=== PATIENT | male | born 1965 | race Caucasian/White ===

== ENCOUNTER 2020-04-08 12:05 | Outpatient (CLI) | payer OTHER, SELFPAY ==
--- NOTE | 2020-04-08 | XR_ITS ---
WS: [id number] THORACIC SPINE TECHNIQUE: AP and lateral views are performed. HISTORY: THORACIC RADICULOPATHY COMPARISON: None available. Very mild S-shaped curvature of the thoracic spine. Pedicles are all identified. No fractures. Diffus e osteopenia. Prior cholecystectomy. XR/XR thoracic spine 3V* [id number] IMPRESSION: Very mild S-shaped scoliosis thoracic spine. No fracture.
--- NOTE | 2020-04-08 | XR_ITS ---
WS: [id number] LUMBAR SPINE: 3 VIEWS TECHNIQUE: AP, lateral and L5-S1 spot. HISTORY: LUMBAR RADICULOPATHY COMPARISON: None available. Mild straightening of the posterior lumbar spine. 3 mm retrolisthesis of L3 and L4. Moderate disc spa ce narrowing at L3-4 and mild at L4-5 and L5-S1. No fractures. Pedicles are all identified. No osseous destruction. SI joints are symmetric bilaterally. No soft tissue abnormalities. Prior cholecystectomy. IVC filter projects to the RIGHT of the L1 and L2 vertebral bodies. XR/XR lumbar spine 2-3V* [id number] IMPRESSION: 1. L3 and L4 retrolisthesis by 3 mm. 2. Moderate degenerative disc disease at L3-4 and mild at L4-5 and L5-S1. 3. No fracture.
== END 2020-04-08 12:06 | disposition home or self-care (01) ==
LOC: RAD 12:12
PROVIDERS: PCP Family Medicine; Visit Provider Family Medicine
DX: M54.14 Radiculopathy, thoracic region (principal); M54.16 Radiculopathy, lumbar region; M51.37 Other intervertebral disc degeneration, lumbosacral region; M51.36 Other intervertebral disc degeneration, lumbar region; M41.84 Other forms of scoliosis, thoracic region
CPT/HCPCS: 72072; 72100

== ENCOUNTER → 2020-05-21 08:15 | Outpatient (BNVA) | payer OTHER, SELFPAY | PROVIDERS: PCP Family Medicine; Referring Provider Family Medicine; Visit Provider Orthopaedic Surgery | DX: M54.9 Dorsalgia, unspecified (principal); M19.09 Primary osteoarthritis, other specified site; M51.36 Other intervertebral disc degeneration, lumbar region; M43.16 Spondylolisthesis, lumbar region | CPT/HCPCS: 72110 ==

== ENCOUNTER 2020-08-23 10:43 | Emergency (ER) | payer OTHER, SELFPAY ==
[2020-08-23 11:42] VITALS: BP 156/89; PULSE 67; RESP 16; TEMP 36.5; O2SAT 95; BMI 29.1
[2020-08-23 11:46] VITALS: BP 127/91; PULSE 60; O2SAT 97
--- NOTE | 2020-08-23 11:50 | ECG_ITS ---
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: : 1965 Requested By: Anirudh Leung Order Number: [id number] Reading MD: TEA DE LEÓN Measurements Intervals [place] Rate: 63 P: 52 WI: 196 QRS: -14 QRSD: 111 T: 18 QT: 384 QTc: 395 Interpretive Statements SINUS RHYTHM MODERATE INTRAVENTRICULAR CONDUCTION DELAY [110+ ms QRS DURATION] INTERPRETATION BASED ON A DEFAULT AGE OF 40 YEARS No previous ECG available for comparison Electronically Signed On 08-24-2020 18:50:36 CDT by TEA DE LEÓN [id number] f
--- NOTE | 2020-08-23 11:50 | XRR_ITS ---
PROCEDURE INFORMATION: Exam: XR Chest Exam date and time: 08/23/2020 11:50 AM Age: 55 years old Clinical indication: Pain; Chest pressure; Additional info: Chest pain TECHNIQUE: Imaging protocol: XR of the chest. Views: 1 view. COMPARISON: CR XR thoracic spine 3V* [id number] 04/08/2020 12:28 PM FINDINGS: Lungs: Unremarkable. No consolidation. Pleural spaces: Unremarkable. No pleural effusion. No pneumothorax. Heart/Mediastinum: Unremarkable. No cardiomegaly. Bones/joints: Unremarkable. XR/XR chest 1V portable [id number] IMPRESSION: No acute findings.
[2020-08-23 12:01] VITALS: BP 127/91; PULSE 59; O2SAT 97
--- NOTE | 2020-08-23 12:11 | ED_ITS ---
HPI - Chest Pain General: Chief Complaint: Chest Pain Stated Complaint: SOB, dizzy, chest pain Time Seen by Provider: 08/23/20 11:49 Source: patient Mode of arrival: ambulatory Limitations: no limitations History of Present Illness: HPI narrative: YesterdayPatient states he has had shortness of breath with exertion for approximately 2 months. Says he has intermittent palpitations as well. He needs feelings of near syncope chest pressure and tightness since last night. He is scheduled for a Cardiac stress test on the last week of August. Patient states he does have an IVC filter. 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.) Onset (ago): day(s) (1) Timing of current episode: episodic Prior episodes: Yes Onset: during rest Pain location: substernal and left chest Pain radiation: none Severity: mild Quality: heaviness Relieving factors: nothing Exacerbating factors: nothing Associated symptoms: Reports dyspnea (Mild shortness of breath with exertion.), palpitations and other (Occasional dizziness with almost near syncope.); Deny abdominal pain, diaphoresis, fever(s), leg edema, nausea, sense of impending doom, syncope or vomiting Treatment prior to arrival: none Risk Factors: Pulmonary embolism risk factors: clotting disorder Review of Systems Const: Reports: fatigue; Denies: fever(s) or diaphoresis Eyes: Denies: change in vision ENMT: Denies: throat pain Card: Reports: chest pain, palpitations and dyspnea on exertion; Denies: edema, swelling of feet/ankles, syncope or leg pain with exertion Resp: Reports: dyspnea (Mild shortness of breath with exertion.) GI: Denies: abdominal pain, nausea or vomiting : Denies: flank pain Musc: Denies: neck pain or back pain Skin/Breast: Denies: rash or pruritus Neuro: Denies: headache(s) or numbness in extremities Psych: Denies: anxiety Gume/Lymph: Denies: enlarged lymph nodes PFSH ED PFSH: Social History Smoking and tobacco status: never smoked Alcohol intake: never Physical Exam Const: COMMON NORMALS: no acute distress, patient oriented x3, no limitations and well nourished GENERAL APPEARANCE: cooperative HENMT: COMMON NORMALS: normocephalic and atraumatic HEAD & SCALP: normocephalic and atraumatic FACE & SINUS: normal facial exam Eye: COMMON NORMALS: EOMs intact bilaterally Neck/C-Spine: COMMON NORMALS: full ROM, no lymphadenopathy, supple, no meningeal signs and no JVD GENERAL: Yes normal visual inspection Lymph: LYMPHATIC: no lymphadenopathy noted Chest: COMMONS NORMALS: normal inspection of the chest and normal palpation of entire chest wall CHEST: No Ecchymosis present and No rash Resp: COMMON NORMALS: normal respiratory effort, No retractions, No use of accessory muscles and clear to auscultation bilaterally EFFORT & INSPECTION: No respiratory distress AUSCULTATION: clear to auscultation bilaterally Cardio: COMMON NORMALS: no JVD, regular rate, regular rhythm and Peripheral pulses 2+ throughout JUGULAR VENOUS DISTENTION: no JVD RATE: regular rate RHYTHM: regular rhythm PERIPHERAL PULSES: Peripheral pulses 2+ throughout GI: COMMON NORMALS: Normal to inspection, nondistended, normoactive bowel sounds present and non-tender : COMMON NORMALS: Yes no CVA tenderness BLADDER/KIDNEY EXAM: Yes no CVA tenderness Back/Pelvis: COMMON NORMALS: no CVA tenderness Extremity: COMMON NORMALS: normal to inspection, full ROM and capillary refill normal Neuro: COMMON NORMALS: patient oriented x3, CN's II-XII intact bilaterally, no focal motor deficits and no sensory deficits noted MENINGEAL SIGNS: Yes no meningeal signs Psych: COMMON NORMALS: mental status grossly normal and Normal thought process present THOUGHT PROCESS: Normal thought process present Skin: COMMON NORMALS: no rashes or lesions noted, no wounds and turgor normal GENERAL SKIN EXAM: no rashes or lesions noted and turgor normal Course 2 Vital Signs: Vital signs: Vital Signs Temperature 97.7 F 08/23/20 11:42 Pulse Rate 59 L 08/23/20 12:01 Respiratory Rate 16 08/23/20 11:42 Blood Pressure 127/91 08/23/20 12:01 Pulse Oximetry 97 08/23/20 12:01 MDM - Chest Pain MDM Narrative: Medical decision making narrative: 1321: blood has yet to be drawn. 1444: I reviewed the lab results with the patient. Patient given the option for admission and patient declined admission for further cardiac work-up. Patient states he already has cardiac stress test scheduled for later this month. However, I have instructed the patient to call his quality improvement consultant on Monday to see if he can get in for a sooner test since he is symptomatic. Patient agreed to return if worse. He will continue his present medications. Lab Data: Attestation: I reviewed the patient's lab results. Labs: Lab Results 08/23/20 08/23/20 08/23/20 Range/Units 13:38 13:38 13:38 WBC 5.5 (4.0-10.0) 10^3/ uL RBC 4.65 (4.1-5.3) 10^6/u L Hgb 14.4 (11.7-16.6) g/dL Hct 43.4 (42.0-52.0) % MCV 93.3 (80-94) fL MCH 31.0 (28.0-34.0) pg MCHC 33.2 (30.0-36.0) g/dL RDW 13.6 (12.1-15.1) % Plt Count 214 (130-400) 10^3/c mm MPV 10.8 H (7.4-10.4) fL Neut % (Auto) 49.9 % Lymph % (Auto) 31.0 % Cottle % (Auto) 11.2 % Eos % (Auto) 6.4 % Baso % (Auto) 1.1 % Neut # (Auto) 2.72 (1.8-7.7) 10^3/u L Lymph # (Auto) 1.7 (0.8-4.8) 10^3/u L Cottle # (Auto) 0.6 (0.2-0.9) 10^3/u L Eos # (Auto) 0.4 (0.0-0.8) 10^3/u L Baso # (Auto) 0.1 (0.0-0.1) 10^3/u L Nucleated RBC % (a uto) 0 % Nucleated RBCs # 0.0 /100WBC PT 19.40 H (12.1-14.9) SECO NDS INR 1.59 H (0.8-1.2) Sodium 141 (136-145) mmol/L Potassium 3.9 (3.5-5.1) mmol/L Chloride 103 (98-107) mmol/L Carbon Dioxide 27 (22-29) mmol/L Anion Gap 14.9 (5-19) BUN 12 (6-20) mg/dL Creatinine 0.7 (0.7-1.2) mg/dL GFR Calculation 117.1 (90-130) mL/min Glucose 88 (65-115) mg/dL Calculated Osmolal ity 291 (285-295) mOsm/k g Calcium 8.7 (8.5-10.5) mg/dL Troponin T Baselin e (0-15) ng/L NT-Pro-B Natriuret Pep 9 (0-125) pg/mL 08/23/20 Range/Units 13:38 WBC (4.0-10.0) 10^3/ uL RBC (4.1-5.3) 10^6/u L Hgb (11.7-16.6) g/dL Hct (42.0-52.0) % MCV (80-94) fL MCH (28.0-34.0) pg MCHC (30.0-36.0) g/dL RDW (12.1-15.1) % Plt Count (130-400) 10^3/c mm MPV (7.4-10.4) fL Neut % (Auto) % Lymph % (Auto) % Cottle % (Auto) % Eos % (Auto) % Baso % (Auto) % Neut # (Auto) (1.8-7.7) 10^3/u L Lymph # (Auto) (0.8-4.8) 10^3/u L Cottle # (Auto) (0.2-0.9) 10^3/u L Eos # (Auto) (0.0-0.8) 10^3/u L Baso # (Auto) (0.0-0.1) 10^3/u L Nucleated RBC % (a uto) % Nucleated RBCs # /100WBC PT (12.1-14.9) SECO NDS INR (0.8-1.2) Sodium (136-145) mmol/L Potassium (3.5-5.1) mmol/L Chloride (98-107) mmol/L Carbon Dioxide (22-29) mmol/L Anion Gap (5-19) BUN (6-20) mg/dL Creatinine (0.7-1.2) mg/dL GFR Calculation (90-130) mL/min Glucose (65-115) mg/dL Calculated Osmolal ity (285-295) mOsm/k g Calcium (8.5-10.5) mg/dL Troponin T Baselin e 6 (0-15) ng/L NT-Pro-B Natriuret Pep (0-125) pg/mL Imaging Data^: CXR: Attestation: I personally reviewed and interpreted this imaging study as follows: My impression: Chest x-ray appears normal. Nothing acute. Radiologist's impression: Patient: Costa Dot #: [id number]: 1965Acct#:[id number]/Sex: 55 / MADM Date: 08/23/20Loc: ERRoom/Bed:Attending Dr: Ordering Provider/Ordering MD: Anirudh Rizzo MD Date of Service: 08/23/20 Procedure(s): XR chest 1V portable [id number] Accession Number(s): [id number] Report Number: [id number] PROCEDURE INFORMATION: Exam: XR Chest Exam date and time: 08/23/2020 11:50 AM Age: 55 years old Clinical indication: Pain; Chest pressure; Additional info: Chest pain TECHNIQUE: Imaging protocol: XR of the chest. Views: 1 view. COMPARISON: CR XR thoracic spine 3V* [id number] 04/08/2020 12:28 PM FINDINGS: Lungs: Unremarkable. No consolidation. Pleural spaces: Unremarkable. No pleural effusion. No pneumothorax. Heart/Mediastinum: Unremarkable. No cardiomegaly. Bones/joints: Unremarkable. XR/XR chest 1V portable [id number] IMPRESSION: No acute findings. Dictated By:Padmini Harding By:Padmini Harding Date/Time:08/23/20 1311 EKG Data^: EKG 1: Attestation: I personally reviewed and interpreted this EKG as follows: EKG interpretation date: 08/23/20 EKG interpretation time: 12:16 Prior EKG tracings: not available for review Interpretation: Normal sinus rhythm with heart rate of 63. Nonspecific IVCD. Normal P wave, normal LA interval, normal ST segment. Normal T waves. Normal axis. Impression normal sinus rhythm with nonspecific IVCD. Otherwise normal. Discharge Plan Discharge Patient Disposition: Home Clinical Impression: Chest pain Condition: Stable Prescriptions: No Action multivitamin Tablet 1 tab PO DAILY RF: 0 lysine 500 mg tablet 500 mg PO DAILY RF: 0 warfarin 2 mg tablet See Rx Instructions .ROUTE .COMPLEX RF: 0 sertraline 50 mg tablet 50 mg PO DAILY RF: 0 hydrocodone-acetaminophen 5-325 mg tablet 1 tab PO Q8H PRN (Reason: Pain) RF: 0 gabapentin 100 mg capsule 100 mg PO TID RF: 0 Beet Vitamin 1 tab PO DAILY RF: 0 Garlique 1 tab PO DAILY RF: 0 saw palmetto 1 tab PO DAILY RF: 0 Discharge Orders: Discharge ED (Routine); Ordered 08/23/20 Ordered By: Anirudh Rizzo Referrals: Andres Stoll MD [Primary Care Provider] - Discharge Diet: Advance as tolerated Discharge Activity: Increase activity as tolerated Patient Instructions: Chest Pain (ED), Opioid Safety Activity Restrictions/Additional Instructions: Call quality improvement consultant office on Monday to see if you can get an earlier appointment to have your cardiac stress test done earlier than later in the month. Return immediately if symptoms worsen. Continue home medications. 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
[2020-08-23 13:53] LABS: Basophils # 0.1 10^3/uL (0.0-0.1); Basophils % 1.1 %; Eosinophils # 0.4 10^3/uL (0.0-0.8); Eosinophils % 6.4 %; Hematocrit 43.4 % (42.0-52.0); Hemoglobin 14.4 g/dL (11.7-16.6); Lymphocytes # 1.7 10^3/uL (0.8-4.8); Mean Corpuscular HGB Conc 33.2 g/dL (30.0-36.0); Mean Corpuscular Volume 93.3 fL (80-94); Mean Platelet Volume 10.8 fL (7.4-10.4); Monocytes # 0.6 10^3/uL (0.2-0.9); Monocytes % 11.2 %; Neutrophils # 2.72 10^3/uL (1.8-7.7); Neutrophils % 49.9 %; Nucleated Red Blood Cells % 0 %; Platelet Count 214 10^3/cmm (130-400); Red Blood Count 4.65 10^6/uL (4.1-5.3); Red Cell Distribution Width 13.6 % (12.1-15.1); White Blood Count 5.5 10^3/uL (4.0-10.0)
[2020-08-23 14:00] LABS: INR 1.59 (0.8-1.2)
[2020-08-23] MEDS: aspirin 81 mg Chew Tablet 324 MG PO (14:09)
[2020-08-23 14:15] LABS: Anion Gap 14.9 (5-19); Blood Urea Nitrogen 12 mg/dL (6-20); Calcium 8.7 mg/dL (8.5-10.5); Carbon Dioxide 27 mmol/L (22-29); Chloride 103 mmol/L (98-107); Glomerular Filtration Rate 117.1 mL/min (90-130); Glucose 88 mg/dL (65-115); NT Pro B Type Natriuretic Pept 9 pg/mL (0-125); Osmolality Calculated 291 mOsm/kg (285-295); Potassium 3.9 mmol/L (3.5-5.1); Sodium 141 mmol/L (136-145)
[2020-08-23 14:31] LABS: Troponin(5th) Baseline 6 ng/L (0-15)
[2020-08-23 15:14] VITALS: BP 126/76; PULSE 63; RESP 18; O2SAT 98
== END 2020-08-23 15:15 | disposition home or self-care (01) ==
PROVIDERS: Emergency Provider Family Medicine; PCP Family Medicine
DX: R07.9 Chest pain, unspecified (principal); Z79.01 Long term (current) use of anticoagulants
CPT/HCPCS: 71045; 80048; 83880; 84484; 85025; 85610; 93005; 99283

== ENCOUNTER 2020-08-26 07:23 | Outpatient (CLI) | payer OTHER, SELFPAY ==
[2020-08-26 07:44] VITALS: BMI 29.1
--- NOTE | 2020-08-26 07:49 | ECG_ITS ---
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 The perfusion scan will be documented separately. DATA: Baseline heart rate was 55 beats per minute. Baseline blood pressure was 135/85 millimeters of mercury. Target heart rate was 165. Maximum heart rate achieved was 90. which was 54 % of the predicted target heart rate. Maximum blood pressure was 148/85 millimeters of mercury. The reason for ending the test was completion of the protocol. The patient did not experience any symptoms. ELECTROCARDIOGRAM: BASELINE: Sinus rhythm. Normal axis. Otherwise, no ST-T changes suggestive of ischemia noted. No arrhythmia noted. EXERCISE: After Lexiscan injection, no ST-T changes suggestive of ischemic noted. No arrhythmia noted. CONCLUSION: Please note due to baseline abnormality of the EKG specificity and sensitivity of the EKG portion of LexiScan MIBI stress test will be low 1. EKG not suggestive of ischemia 2. Lexiscan injection unremarkable. 3. Perfusion scan will be documented separately. Electronically Signed On 08-28-2020 14:54:56 CDT by TEA DE LEÓN [id number]
--- NOTE | 2020-08-26 07:50 | NMCV_ITS ---
NM hillary perf SPECT r/s* [id number] Mikhail Do Age: 55 Gender: M : 1965 Exam Date: 08/26/2020 08:29 Ordering Phys: Andres Stoll MD Technologist: JESUS Murphy Exam Location: [facility] Indications: CHEST PAIN STRESS TEST Please see separate stress test report in [facility] for full findings IMAGE PROTOCOL Rest/Stress 1 Lexiscan Day Radiopharmaceutical Dose (mCi) Administration Site Administered by Rest: Tc-99m 10.6 IV JESUS Ferreira Sestamibi Stress:Tc-99m 32.9 IV JESUS Ferreira Sestamibi Rest: 26-Aug-2020 60 Discovery 630 Stress: 26-Aug-2020 30 Discovery 630 0.4mg Lexiscan. Images obtained in supine and prone position. SPECT RESULTS Technical Quality: Excellent Raw Data Analysis: Normal Image Corrections: No attenuation or motion correction applied Summed Stress Score: 1 Summed Rest Score: 0 Summed Difference Score: 1 PERFUSION FINDINGS Medium-sized area of patchy decreased tracer uptake noted in mid to distal inferior inferolateral wall on the rest images which showed medium-sized area of moderate reversibility may represent ischemia however in the absence of wall motion abnormality cannot rule out artifact FUNCTIONAL RESULTS (calculated via Gated SPECT) Stress Image LV EF (%): 65 Stress EDV (mL):117 TID: 1.04 Stress ESV (mL):41 Rest Image LV EF (%): 65 FUNCTIONAL FINDINGS: There is normal left ventricular systolic function. IMPRESSIONS Medium-sized area of patchy reversibility suggestive of ischemia in the RCA territory was noted in the inferior wall of the left ventricle, in the absence of wall motion abnormality could it be artifact, clinical correlation advised. EKG segment will be documented separately. Gene Parker MD (Electronically Signed) Final Date: 26 August 2020 20:34 S
[2020-08-26] MEDS: regadenoson 0.4 Mg/5 ml Syringe IVP (09:10)
[2020-08-26 09:25] VITALS: BP 128/81; PULSE 62
== END 2020-08-26 07:24 | disposition home or self-care (01) ==
LOC: CDL 07:26
PROVIDERS: PCP Family Medicine; Visit Provider Family Medicine
DX: R07.9 Chest pain, unspecified (principal)
CPT/HCPCS: 78452; 93017; A9500; J2785

== ENCOUNTER → 2020-09-01 15:03 | Outpatient (BNVA) | payer OTHER, SELFPAY | PROVIDERS: PCP Family Medicine; Visit Provider Internal Medicine Cardiovascular Disease | DX: R06.02 Shortness of breath (principal); R94.39 Abnormal result of other cardiovascular function study; Z01.818 Encounter for other preprocedural examination | CPT/HCPCS: 80048; 85025; 85610; 87635 ==

== ENCOUNTER → 2020-09-03 13:32 | Outpatient (BNVA) | payer OTHER, SELFPAY | PROVIDERS: PCP Family Medicine; Referring Provider Family Medicine; Visit Provider Nurse Practitioner Family | DX: Z12.5 Encounter for screening for malignant neoplasm of prostate (principal); R39.198 Other difficulties with micturition; N40.0 Benign prostatic hyperplasia without lower urinary tract symptoms; N41.1 Chronic prostatitis | CPT/HCPCS: 81003; G0103 ==

== ENCOUNTER 2020-09-04 05:58 | Day surgery (SDC) | payer OTHER, SELFPAY ==
[2020-09-04] VITALS (17 sets, daily range): BP systolic 100–141; BP diastolic 68–101; PULSE 54–88; RESP 12–19; O2SAT 91–96; BMI 31.0
--- NOTE | 2020-09-04 06:00 | XACV_ITS ---
Ht: 183 cm Wt: 104 kg BSA: 2.32 m2 Gender: Male : 1965 Any Known Allergies: Other Exam Priority: Routine Procedure(s): Procedure Description: Diagnostic procedure Procedure Description: Left Heart Catheterization Procedure Description: Left ventriculography Procedure Description: Coronary Angiography Diagnostic Cath Status: Elective Diagnostic Findings * No disease noted in the Left Main, Left Anterior Descending, Right, or Circumflex coronary arteries. * Coronary angiography shows right dominance. Conclusions 1. No disease noted in the Left Main, Left Anterior Descending, Right, or Circumflex coronary arteries. 2. All oneal are normal. 3. Normal left ventricular systolic function. Ejection fraction of 65%. Recommendations * Continue current medical management and risk factor modification. Ventriculography Ejection Fraction: 65.0 % Left Ventriculography Findings: * Normal left ventricle ejection fraction no wall motion abnormality. Pressures Phase:Rest AO : 107 / 61 ( 77 ) @ 7:18:00 AM 110 / 62 ( 79 ) @ 7:18:00 AM LV : 127 / -14 / 9 @ 7:17:00 AM 179 / 47 / 84 @ 7:18:00 AM 127 / -12 / 12 @ 7:18:00 AM Valves Phase:DefaultPhase AV : 18.0 @ 8:25:27 AM 18.0 @ 8:25:27 AM AV Mean Gradient: 25.0 @ 8:25:27 AM 25.0 @ 8:25:27 AM Clinical Evaluation EBL: 5mL-10mL Procedural Details Procedure Consent Obtained. Pre-Procedure Time Out. Identified patient by full name and date of as verbalized by the patient/guarantor. Does the consent match the physician's order: Yes. Accurate & Complete Informed Consent: Yes. Inpatient/Outpatient History & Physical on Chart: Yes. If H&P is completed, is and addenduem needed: No; If yes, is the addendum complete: N/A. Visualize and Verify Site with Patient/Guarantor: N/A. Relevant Radiology Images available: N/A. Pre-op teaching completed and patient verbalized understanding. The risks, benefits, and alternatives of sedation and/or procedure were discussed by physician. The patient agrees to continue. Procedure started. [facility] Clinical Fraility Score: 2: Well. 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 Chest Pain Symptom Assessment: Typical Angina Symptoms. Cardiovascular Instability: No. Correct patient, site and procedure confirmed by cath team. PERRLA. Strong, equal hand water technician bilaterally. Lungs clear x 5 lobes. IV Site on Arrival: 20 gauge in the left anticubital. IV Fluids: 0.9% NaCl at KVO. 0 mL infused prior to liaison inspection laboratory assistant. Pre Procedural Pulses: bilateral dorsalis pedis was 3+. Pre Procedural Pulses: bilateral posterior tibial was 3+. Pre Procedural Pulses: bilateral radial was 3+. Oxygen started at 2liters/min via nasal canula. right groin was prepped with chloroprep then draped in the usual sterile fashion. right radial was prepped with chloroprep then draped in the usual sterile fashion. Baseline sample Acquired. HR: 57 BPM. Equipment: 6F - Radial. Cardiac Cath Pack. ACIST Manifold Kit Model BT 2000. Heparinized Saline (2 units/mL), 1000 mL bag. Physician arrived. Physician scrubbed in. Immediate Pre-Procedure Time Out. Correct Patient: Yes; Correct Procedure: Yes; Correct Site: Yes; Correct Patient Position: Yes; Correct Supplies: Yes; Dried Flammable Prep: Yes; Blood Products Available: N/A;. Lidocaine 1% infiltrated to the right radial. Arterial access obtained. A 5 macanese TIG catheter in over wire. Multiple views taken of right coronary artery. Catheter redirected to the LCA. Catheter removed over the exchange wire. A 5 macanese Angled Pig catheter in over wire. EDP Sample taken: LV 127/-15,9; HR: 67 BPM; SpO2: 94%. EDP Sample taken: LV 179/47,84; HR: 67 BPM; SpO2: 94%. Pullback taken: LV 127/-13,12; AO 107/61(77); Mean: 25mmHg, Peak to Peak: 18mmHg, SEP: 8sec/min; HR: 67 BPM; SpO2: 94%. Catheter removed over the exchange wire. Physician scrubbed out. A TR Band was successful obtaining hemostatsis at the Right Radial artery insertion site. TR band placed. Hemostasis obtained. Post Procedure: Pulses reassessed and unchanged. PERRLA. Strong, equal hand water technician bilaterally. No VTE prophylaxis required. Medication's Wasted: Lidocaine 1% = 18 mL. Medication's Wasted: Nitro = 49.8 mg. Medication's Wasted: Heparin = 1000 units. Total IV fluids: 50 mL. Contrast type used: Omnipaque 300 mgI/mL, 500 mL bottle. Post-op diagnosis: abnormal stress test. Complications: none. Estimated blood loss: 5mL-10mL. Procedure completed. Patient transferred by wheelchair to CPRU. Vital chart was stopped. Access Site Site: Right Radial artery Sheath Size: 6 Fr Hemostasis Method: TR Band Hemostasis Success: Successful Procedure Medications Start: 7:54 AM Stop: 7:54 AM Medication: Benadryl Amount: 50 mg Route: I.V. Start: 7:54 AM Stop: 7:54 AM Medication: Versed Amount: 1 mg Route: I.V. Start: 7:54 AM Stop: 7:54 AM Medication: Fentanyl Amount: 50 mcg Route: I.V. Start: 8:01 AM Stop: 8:01 AM Medication: Versed Amount: 1 mg Route: I.V. Start: 8:01 AM Stop: 8:01 AM Medication: Fentanyl Amount: 50 mcg Route: I.V. Start: 8:06 AM Stop: 8:06 AM Medication: Versed Amount: 1 mg Route: I.V. Start: 8:08 AM Stop: 8:08 AM Medication: Nitrogylcerin Amount: 200 mcg Route: I.A. Start: 8:10 AM Stop: 8:10 AM Medication: Heparin Amount: 5000 units Route: I.V. Start: 8:12 AM Stop: 8:12 AM Medication: Versed Amount: 1 mg Route: I.V. I, the attending physician, have reviewed and verified all procedure medications. Yes, all medications given per verbal order History/Risk Factors Hypertension: No Dyslipidemia: No Peripheral Arterial Disease (PAD): No Myocardial Infarction (DE): No Obesity: No Renal Disease: No Tobacco Use: Former Prior Interventions PCI: No CABG: No Valve Surgery: No Report Signatures Finalized by Gene Parker MD on 09/18/2020 10:52 AM
[2020-09-04 07:32] LABS: INR 1.27 (0.8-1.2)
[2020-09-04] MEDS: clopidogrel 300 mg Tablet 600 MG PO (07:45)
--- NOTE | 2020-09-04 07:48 | W.PM.OPSUD ---
Surgery/Procedure H&P Update DATE OF PROCEDURE: September 04, 2020 DATE H&P PERFORMED: 09/01/20 H&P UPDATE INFORMATION: I have reviewed H&P completed within last 30 days, I have examined patient prior to procedure, No changes to prior documentation and Changes to prior documentation as noted here PREOP DIAGNOSIS: Abnormal stress test, chest pain PLANNED PROCEDURE: Operation Date: 09/04/20 07:00 Proposed Procedures p Cardiac Catheterization left(Left) - Gene Parker MD PATIENT REASSESSED PRIOR TO SEDATION, WITH NO CHANGE NOTED: Yes PHYSICAL EXAM: alert, oriented x 3, clear to auscultation bilaterally and regular rate & rhythm AIRWAY EVAL/ANESTHESIA PLAN: ASA II, Risks, benefits & alternatives of sedation and/or procedure discussed and Patient agrees to continue as planned
--- NOTE | 2020-09-04 08:47 | SUR.PHASEII ---
RECOVERY NOTE Patient brought to CPRU for recovery/discharge. Vital signs and Site assessments per flowsheet. Call light placed within reach. Verbal post cath instructions given to patient and spouse. Verbalized understanding. No hematoma noted to right wrist at this time.
--- NOTE | 2020-09-04 08:59 | SUR.PHASEII ---
IV FLUIDS 0.9% NS AT 100 ML/HR POST CATH. INFUSING ORDERED.
--- NOTE | 2020-09-04 09:30 | SUR.PHASEII ---
TR BAND DEFLATION TR BAND DEFLATION BEGAN. NO HEMATOMA NOTED. PATIENT GIVEN POST CATH INSTRUCTIONS. VERBALIZED UNDERSTANDING.
--- NOTE | 2020-09-04 11:19 | SUR.PHASEII ---
BAND DEFLATION Band deflated. Verbal post cath instructions went over. Pt understood.
--- NOTE | 2020-09-04 12:55 | SUR.PHASEII ---
Lovenox scripts Lovenox injections discussed with patient. MD to have patient take tonight, Monday BID, Monday BID and Monday morning as previous prescribed Prior to procedure for warfarin dosing to take effect. Patient verbalized understanding. Scripts called to local [facility] pharmacy for patient to take. Noted. Patient understood dosing.
== END 2020-09-04 13:10 | disposition home or self-care (01) ==
PROVIDERS: PCP Family Medicine; Visit Provider Internal Medicine Cardiovascular Disease
DX: R94.39 Abnormal result of other cardiovascular function study (principal); R07.9 Chest pain, unspecified; Z86.718 Personal history of other venous thrombosis and embolism
CPT/HCPCS: 36415; 85610; 93452; C1769; C1887; C1894; J1200; J1644; J2250; J3010; J3430; J3490; J7030; Q9967

== ENCOUNTER → 2021-05-19 08:12 | Outpatient (BNVA) | payer OTHER, SELFPAY | PROVIDERS: PCP Family Medicine; Referring Provider Family Medicine; Visit Provider Orthopaedic Surgery | DX: M25.562 Pain in left knee (principal) | CPT/HCPCS: 73560; 73565 ==

== ENCOUNTER → 2021-09-15 08:14 | Outpatient (BNVA) | payer OTHER, SELFPAY | PROVIDERS: PCP Family Medicine; Visit Provider Family Medicine | DX: Z79.01 Long term (current) use of anticoagulants (principal); N41.1 Chronic prostatitis; M48.062 Spinal stenosis, lumbar region with neurogenic claudication | CPT/HCPCS: 80053; 80061; 83036; 84153; 84550; 85025; 85610 ==

== ENCOUNTER → 2021-11-11 09:38 | Outpatient (BNVA) | payer OTHER, SELFPAY | PROVIDERS: PCP Family Medicine; Visit Provider Physician Assistant | DX: M48.062 Spinal stenosis, lumbar region with neurogenic claudication (principal); M51.37 Other intervertebral disc degeneration, lumbosacral region; M47.816 Spondylosis without myelopathy or radiculopathy, lumbar region | CPT/HCPCS: 72110 ==

== ENCOUNTER 2021-12-09 06:44 | Outpatient (CLI) | payer OTHER, SELFPAY ==
--- NOTE | 2021-12-09 07:15 | MR_ITS ---
WS: [id number] MRI LUMBAR SPINE NONCONTRAST HISTORY: low back pain COMPARISON: 04/16/2020 TECHNIQUE: Sagittal and axial multisequence imaging is submitted. Increase in the cervical lordosis and thoracic kyphosis. Cervical and thoracic mild disc bulges. Most significant disc bulge at C3-4 with contact on the ventral cervical cord. No high-grade stenosis. Mild straightening of the normal lumbar lordosis. No fractures. Moderate disc space narrowing and desiccation at L3-4, L4-5 and L5-S1. Conus terminates normally at L1-2 disc level. L1-L2: Normal. L2-L3: Mild ligamentum flavum and facet disease. No stenosis. Small central fissure. No stenosis. L3-L4: Very mild osteophytic ridging with ligamentum flavum and facet disease. There is a small LEFT foraminal disc protrusion. L4-L5: Diffuse annular disc bulging and osteophytic ridging. Ligamentum flavum and facet arthritis. S mall amount of fluid in the LEFT facet joint. Very minimal narrowing of the subarticular recesses and foramina. L5-S1: Mild disc bulging. Facet and ligamentum flavum hypertrophy. Paravertebral soft tissues are negative. MR/MR lumbar spine wo con* [id number] IMPRESSION: 1. No high-grade central or foraminal stenosis. 2. Small LEFT foraminal disc protrusion proximal foramen of L3-4. 3. Multilevel mild facet disease. 4. Mild bilateral subarticular recess and foraminal narrowing at L4-5.
== END 2021-12-09 06:45 | disposition home or self-care (01) ==
LOC: RAD 06:44
PROVIDERS: PCP Family Medicine; Visit Provider Physician Assistant
DX: M47.816 Spondylosis without myelopathy or radiculopathy, lumbar region (principal); M51.26 Other intervertebral disc displacement, lumbar region; M48.061 Spinal stenosis, lumbar region without neurogenic claudication
CPT/HCPCS: 72148

== ENCOUNTER → 2022-07-26 07:54 | Outpatient (BNVA) | payer MEDICARE, OTHER, SELFPAY | PROVIDERS: PCP Family Medicine; Visit Provider Physician Assistant | DX: M47.816 Spondylosis without myelopathy or radiculopathy, lumbar region (principal); M51.37 Other intervertebral disc degeneration, lumbosacral region; M48.062 Spinal stenosis, lumbar region with neurogenic claudication | CPT/HCPCS: 72110; 99203 ==

== ENCOUNTER → 2022-08-09 10:57 | Outpatient (BNVA) | payer MEDICARE, OTHER, SELFPAY | PROVIDERS: PCP Family Medicine; Visit Provider Orthopaedic Surgery | DX: M17.11 Unilateral primary osteoarthritis, right knee (principal); E11.9 Type 2 diabetes mellitus without complications | CPT/HCPCS: 36415; 73560; 73565; 80053; 83036; 85025; 99213 ==

== ENCOUNTER 2022-08-16 14:56 | Outpatient (CLI) | payer MEDICARE, OTHER, SELFPAY | END 2022-08-16 14:57 | disposition home or self-care (01) | LOC: RAD 15:02 | PROVIDERS: PCP Family Medicine; Visit Provider Orthopaedic Surgery | DX: M48.062 Spinal stenosis, lumbar region with neurogenic claudication (principal); M51.37 Other intervertebral disc degeneration, lumbosacral region; M54.16 Radiculopathy, lumbar region; M47.816 Spondylosis without myelopathy or radiculopathy, lumbar region; Z87.828 Personal history of other (healed) physical injury and trauma | CPT/HCPCS: 99204 ==

== ENCOUNTER → 2022-09-15 08:11 | Outpatient (BNVA) | payer MEDICARE, OTHER, SELFPAY | PROVIDERS: PCP Family Medicine; Visit Provider Student in an Organized Health Care Education/Training Program | DX: M17.11 Unilateral primary osteoarthritis, right knee (principal) | CPT/HCPCS: 99204 ==

== ENCOUNTER → 2022-09-20 14:13 | Outpatient (BNVA) | payer MEDICARE, OTHER, SELFPAY | PROVIDERS: PCP Family Medicine; Visit Provider Anesthesiology Pain Medicine | DX: M54.16 Radiculopathy, lumbar region (principal); M48.062 Spinal stenosis, lumbar region with neurogenic claudication; M47.816 Spondylosis without myelopathy or radiculopathy, lumbar region; M51.37 Other intervertebral disc degeneration, lumbosacral region | CPT/HCPCS: 64483; 64484; J1100; J3490 ==

== ENCOUNTER → 2022-09-23 08:32 | Outpatient (BNVA) | payer MEDICARE, OTHER, SELFPAY | PROVIDERS: PCP Family Medicine; Visit Provider Family Medicine | DX: Z51.81 Encounter for therapeutic drug level monitoring (principal); E11.9 Type 2 diabetes mellitus without complications; Z13.220 Encounter for screening for lipoid disorders; Z12.5 Encounter for screening for malignant neoplasm of prostate; R35.0 Frequency of micturition; R03.0 Elevated blood-pressure reading, without diagnosis of hypertension | CPT/HCPCS: 80053; 80061; 83036; 83721; 84153; 84550; 85025 ==

== ENCOUNTER 2022-09-26 06:14 | Outpatient (CLI) | payer MEDICARE, OTHER, SELFPAY ==
--- NOTE | 2022-09-26 06:30 | USCV_ITS ---
Mikhail Do Age: 57 Gender: M : 1965 Exam Date: 09/26/2022 06:37 Ordering Phys: Andres Stoll MD Technologist: CT Exam Location: [facility] – [place] Indication: le swelling PROCEDURES: Venous duplex imaging was performed in only the left lower extremity. In addition, the posterior tibial and peroneal trunk were evaluated. On the left side, the common femoral, superficial femoral, profunda femoral, popliteal, posterior tibial, greater saphenous veins, and the peroneal trunk were identified and interrogated in the standard fashion. These veins were found to be easily compressible with spontaneous blood flow. No evidence of insufficiency or thrombus noted. FINDINGS: no dvt CONCLUSIONS No evidence of left lower extremity DVT. Boris Millan MD (Electronically Signed) Final Date: 26 September 2022 09:01 Amended: 26 September 2022 09:03 C
== END 2022-09-26 06:15 | disposition home or self-care (01) ==
PROVIDERS: PCP Family Medicine; Visit Provider Family Medicine
DX: M79.662 Pain in left lower leg (principal)
CPT/HCPCS: 93971

== ENCOUNTER → 2022-12-21 12:22 | Outpatient (BNVA) | payer MEDICARE, OTHER, SELFPAY | PROVIDERS: PCP Family Medicine; Visit Provider Family Medicine | DX: R30.0 Dysuria (principal) | CPT/HCPCS: 81000 ==

== ENCOUNTER → 2022-12-27 15:21 | Outpatient (BNVA) | payer MEDICARE, OTHER, SELFPAY | PROVIDERS: PCP Family Medicine; Visit Provider Student in an Organized Health Care Education/Training Program | DX: M25.561 Pain in right knee (principal); Z01.818 Encounter for other preprocedural examination | CPT/HCPCS: 99214 ==

== ENCOUNTER → 2023-01-05 15:07 | Outpatient (BNVA) | payer MEDICARE, OTHER, SELFPAY | PROVIDERS: PCP Family Medicine; Visit Provider Family Medicine | DX: Z01.818 Encounter for other preprocedural examination (principal); M25.50 Pain in unspecified joint | CPT/HCPCS: 80053; 81003; 85025; 86618; 86666; 86757 ==

== ENCOUNTER 2023-01-06 12:43 | Outpatient (CLI) | payer MEDICARE, OTHER, SELFPAY ==
--- NOTE | 2023-01-06 13:00 | CT_ITS ---
WS: [id number] CT RIGHT KNEE, NONCONTRAST TECHNIQUE: Noncontrast CT of the RIGHT knee to include the RIGHT hip and ankle. CLINICAL INFORMATION: M17.11 - Unilateral primary osteoarthritis, right knee COMPARISON: None. DLP: [id number] scans at [facility] use at least one of these dose optimization techniques: automated e xposure control; mA and/or kV adjustment per patient size (includes targeted exams where dose is matc hed to clinical indication); or iterative reconstruction. FINDINGS: Advanced degenerative arthritis medial joint compartment RIGHT knee with subchondral cystic change an d slightly hypertrophic patella. Small suprapatellar effusion. Vascular calcification. Moderate degen erative arthritis sacroiliac joints. Enlarged prostate measuring 5.3 cm with evidence of bladder outl et obstruction. Recommend correlation PSA. IMPRESSION: Images obtained for preoperative purposes.
== END 2023-01-06 12:44 | disposition home or self-care (01) ==
LOC: RAD 12:44
PROVIDERS: PCP Family Medicine; Visit Provider Student in an Organized Health Care Education/Training Program
DX: M17.11 Unilateral primary osteoarthritis, right knee (principal)
CPT/HCPCS: 73700

== ENCOUNTER 2023-01-18 15:40 | Observation (INO) | payer MEDICARE, OTHER, SELFPAY ==
[2023-01-18] VITALS (16 sets, daily range): BP systolic 92–149; BP diastolic 63–86; PULSE 55–77; RESP 12–20; TEMP 36.3–37.6; O2SAT 91–97; BMI 32.3
[2023-01-18] MEDS: acetaminophen 1,000 MG/100 ML PIGGYBACK 400 MG IV ×3 (06:20→22:16)
[2023-01-18] MEDS: ketorolac 30 mg/mL INJ IVP (06:21)
[2023-01-18] MEDS: scopolamine 1.5 Patch 1 PATCH TRANSDERMA (06:29)
[2023-01-18] MEDS: lactated ringers 500 ML IV (06:29)
[2023-01-18] MEDS: sodium chloride 0.9% 1,000 ML 30 ML IV (06:56)
--- NOTE | 2023-01-18 07:04 | W.PM.OPSUD ---
Surgery/Procedure H&P Update DATE OF PROCEDURE: January 18, 2023 DATE H&P PERFORMED: 12/27/22 H&P UPDATE INFORMATION: I have reviewed H&P completed within last 30 days, I have examined patient prior to procedure and No changes to prior documentation CHANGES TO PREVIOUS DOCUMENTATION: None PREOP DIAGNOSIS: Right knee degenerative joint disease PRIMARY INDICATION FOR PROCEDURE: Right knee degenerative joint disease PLANNED PROCEDURE: Operation Date: 01/18/23 07:30 Proposed Procedures p Right Yanick Robot Total Knee Arthroplasty(Right) - Armando Boo DO
[2023-01-18 07:16] LABS: Basophils # 0.1 10^3/uL (0.0-0.1); Basophils % 1.1 %; Eosinophils # 0.2 10^3/uL (0.0-0.8); Eosinophils % 3.7 %; Hematocrit 46.2 % (37-53); Lymphocytes # 2.1 10^3/uL (0.8-4.8); Lymphocytes % 36.3 %; Mean Corpuscular HGB Conc 33.3 g/dL (30-55); Mean Corpuscular Hemoglobin 31.5 pg (27-33); Mean Corpuscular Volume 94.5 fl (82-101); Mean Platelet Volume 11.1 fL (7.4-10.4); Monocytes # 0.6 10^3/uL (0.2-0.9); Monocytes % 10.5 %; Neutrophils # 2.73 10^3/uL (1.8-7.7); Neutrophils % 47.9 %; Nucleated Red Blood Cells % 0 %; Platelet Count 253 10^3/cmm (157-399); Red Blood Count 4.89 10^6/uL (3.85-5.65)
--- NOTE | 2023-01-18 07:29 | ANES.PREANE2 ---
Pre-Anesthetic Assessment Height/Weight: Height 1.78 m Weight 102.058 kg Temp Pulse Resp BP Pulse Ox O2 Del Method 97.4 F L 67 20 H 149/86 97 Room Air 01/18/23 06:03 01/18/23 06:03 01/18/23 06:03 01/18/23 06:03 01/18/23 06:03 01/18/23 06:03 Preop Diagnosis: Right knee degenerative joint disease Operation Date: 01/18/23 07:30 Proposed Procedures p Right Yanick Robot Total Knee Arthroplasty(Right) - Armando Boo, Familial anesthetic complications: none Was Beta Lisa taken within 24 hours: N/A Was Clonidine taken within 24 hours: N/A Last intake: Intake Last Liquid Date 01/17/23 Last Liquid Time 18:00 Last Solid Date 01/17/23 Last Solid Time 18:00 Social No alcohol and No tobacco Exam alert, oriented x 3, clear to auscultation bilaterally and regular rate & rhythm Airway Mallampati: Class II Dentition: full CV/HEM favtor V leiden w/ Hx DVT and IVC filter, plan is to start patient on propylactic lovenox. will need to check when this is going to start so spinal is not performed without proper holding period to start anticoagulation Anesthetic Plan ASA status: 2 Anesthesia: Choice Other: spinal if prophylactic lovenox is to be held at least 12 hrs after (24 if therapeutic), otherwise general ETT, with nerve block Risk of > 500 ml blood loss (7ml/kg in children): No Medications/Allergies Home Medications Medication Instructions Recorded Confirmed Last Taken Type multivitamin 1 tab PO DAILY 05/21/20 01/18/23 01/17/23 History aspirin 81 mg tablet,delayed 81 mg PO DAILY 01/25/22 01/18/23 01/12/23 History release allopurinol 300 mg tablet 300 mg PO DAILY #90 tabs 09/22/22 01/18/23 01/17/23 Rx enoxaparin 30 mg/0.3 mL 30 mg (0.3 mL) SUBCUT Q12H 14 days 01/05/23 01/18/23 Unknown Rx subcutaneous syringe (Lovenox) #8.4 mL sertraline 100 mg tablet 50 mg PO DAILY 01/05/23 01/18/23 01/17/23 History cyclobenzaprine 10 mg tablet 10 mg PO TID PRN Muscle Spasm 01/18/23 01/18/23 Unknown History Allergies Allergy/AdvReac Type Severity Reaction Status Date / Time haloperidol [From Haldol] Allergy oral Verified 01/18/23 05:59 swelling Nhqllck-IWG-WxG Reductase Allergy short of Verified 01/18/23 05:59 Inhibitor breath [Zttcuno-Xqx-Wgb Reductase Inhibitor] Current Medications Generic Name Dose Route Start Last Admin Trade Name Freq PRN Reason Stop Dose Admin Sodium Chloride 1,000 mls @ 30 mls/hr 01/18/23 06:00 01/18/23 06:56 Sodium Chloride 0.9% IV 01/19/23 05:59 30 mls/hr .Q24H AVA Administration PFSH Anesthesia Medical History BPH loc w/o ur obs/LUTS Chronic prostatitis Diabetes mellitus Difficulty urinating DVT (deep venous thrombosis) Factor V deficiency Hx pulmonary embolism Positive cardiac stress test Surgical History History of surgery on arm S/P appendectomy S/P cholecystectomy S/P colon resection S/P IVC filter S/P knee surgery Family History Father , 67 y/o CHF (congestive heart failure) Myocardial infarct Brother Bleeding disorder Factor V (his 2 daughters have this as well) Mother Stroke Grandmother Abdominal aortic aneurysm (AAA) Social History Smoking and tobacco/nicotine status: never used tobacco/nicotine Alcohol intake: current Alcohol intake frequency: few times a month Substance/Drug Use: never Marital status: Current occupational status: employed Data Anesthesia 01/18/23 06:13 01/18/23 06:13 Short CBC 01/18/23 Range/Units 06:13 WBC 5.70 (3.29-11.43) 10^3/uL Hgb 15.40 (11.27-16.99) g/dL Hct 46.2 (37-53) % MCV 94.5 (82-101) fl Plt Count 253 (157-399) 10^3/cmm Neut % (Auto) 47.9 % Neut # (Auto) 2.73 (1.8-7.7) 10^3/uL Cardiac Studies: Sestamibi Stress Test (Cardiology) 08/26/20
[2023-01-18 07:38] LABS: Anion Gap 17.5 (5-19); Blood Urea Nitrogen 14 mg/dL (6-20); Calcium 9.4 mg/dL (8.5-10.5); Carbon Dioxide 25 mmol/L (22-29); Chloride 103 mmol/L (98-107); Creatinine Clr Calc Pharmacy 121.9397; Glomerular Filtration Rate 99.6 mL/min (90-130); Glucose 121 mg/dL (65-115); Osmolality Calculated 294 mOsm/kg (285-295); Potassium 4.5 mmol/L (3.5-5.1); Sodium 141 mmol/L (136-145)
--- NOTE | 2023-01-18 08:17 | ANES.PROC ---
Anesthesia Procedures Procedure/Date: 01/18/23 Nerve Block ^: Nerve Block 1: Main Anesthesia: spinal anesthesia block Time Out Performed: Yes Consent: requested by attending/covering physician, from patient, from other, risks and benefits reviewed and patient agrees to proceed Nerve block location: adductor canal (R) Anesthesia monitors applied: pulse oximetry, EKG, BP cuff and oxygen Nerve block position: supine Anesthetic Used: ropivicaine 0.5% (30 ml) and with decadron (4 mg) Ultrasound used to: recognize landmarks and visualize and ID femerol nerve Nerve Stimulator Used?: No Interscalene/Femoral BLK: 4 stimuplex 21 g needle used for position and inplane approach, visualize local anesthetic spread and no vascular puncture identified Injection: neg aspiration of heme Patient Tolerated Procedure: well Complications: none
[2023-01-18] MEDS: ceFAZolin 2,000 MG in sodium chloride 0.9% (plus) 50 ML 100 MG IV ×2 (08:22→17:37)
[2023-01-18 08:26] LABS: INR 0.98 (0.8-1.2)
[2023-01-18] MEDS: ROPivacaine 0.2% Premix 100 mL 200 MG INTRA-ARTI (09:21)
[2023-01-18] MEDS: EPINEPHrine 1 mg/mL INJ XX (09:21)
[2023-01-18] MEDS: ketorolac 30 mg/mL INJ XX (09:22)
--- NOTE | 2023-01-18 09:23 | PC.NURSE ---
Due to patient's factor V deficiency, no TXA was administered per Dr. Boo's order.
--- NOTE | 2023-01-18 10:15 | PC.NURSE ---
Updated patient's on patient's status.
--- NOTE | 2023-01-18 10:46 | P.OP_ITS ---
Operative Report Date of procedure: January 18, 2023 Surgeon: Armando Boo DO Geothermal Electrical Engineer: Andres Boo PA-C: PA was necessary for assistance in this case with retraction leg positioning as well as assistance with instrumentation and implantation of final implants as well as assistance with retraction and protection of neurovascular structures assistance and wound closure and dressing application. Procedure: Preoperative diagnosis: Right knee degenerative joint disease Post-op diagnosis: Same Procedure done: Right total knee arthroplasty, cemented?robotic assisted Yanick Implants: Amelia triathlon size 5 femur CR cemented?right Amelia triathlon size? 5 tibia universal baseplate cemented Conklin triathlon symmetric patella size 33 mm Conklin triathlon polyethylene 11mm Surgeon: Armando Boo DO Estimated blood loss: 50 mL Tourniquet 60minutes IV fluids: 800 mL Urine output: 50mL Complications: None Condition: stable Disposition: floor Brief History: Patient is a 57-year-old male with with chronic?right knee degenerative joint disease.? Patient has been worked up in the outpatient setting in the orthopedic office at this point time through shared decision making given his egut-bp-uahl arthritis as well as failed conservative treatment, and pt would like to proceed with a?right total knee arthroplasty.? Through shared decision making elected to proceed with surgical intervention for?right total knee arthroplasty.? We talked about continued conservative treatment and surgical intervention as far as the?risk benefits complications alternatives surgical and nonsurgical treatment options.? At this point time understanding patient?risks with surgery he agrees to proceed with surgical intervention.? Once again??risk with surgery include but are not limited to make it better make it worse blood clot, heart attack, stroke, on the table, infection, injury to nerves or vessels, persistent pain, arthrofibrosis, implant failure.? Understanding these?risks patient agrees to proceed with surgical intervention consent was obtained in the office.? All questions answered. Procedure: Patient was seen and evaluated in the preoperative holding area.? Consent was?reviewed and signed with patient with plan for?right total knee arthroplasty.? All questions answered.? Correct extremity marked.? Patient seen and evaluated by the anesthesia department and once cleared for surgery was taken back to the operative suite.? Patient was placed into a supine position on the OR table.? All bony prominences were well-padded.? Patient was appropriately secured to the bed.? Patient underwent anesthesia per the anesthesia department.? Patient?received spinal anesthesia and? Sharif catheter was placed.? A nonsterile tourniquet was applied to the?right thigh.? At this point in time a final timeout performed.? Patient?received appropriate preoperative antibiotics. Next the?right lower extremity was then prepped and draped in standard orthopedic fashion. Esmarch tourniquet was used exsanguinate the?right lower extremity.? Tourniquet was insufflated to 250 mmHg. A standard anterior incision was made over midline of the knee.? Sharp scalpel excision through skin and subcutaneous tissue full-thickness skin flaps were made.? Fascia was elevated off of the extensor?retinaculum was stable with medial parapatellar arthrotomy was then made.? The performed standard sequential?releases. Immediately on entry into the joint patient was found to have severe eburnated bone and tricompartmental arthritic changes noted.? With significant osteophyte formation.? Next the the patella was then stuffed and the knee was then flexed.?? Mima was placed superiorly around the anterior aspect of the femur this was freed of synovium and I subsequently then placed by 2 femur pins to establish my femur arrays for the [employer]?robot.? These were then placed bicortically and? femur array was then appropriately secured with appropriate visualization.? Next attention was turned towards the tibial?rays.? These were then drilled sequentially bicortically in parallel fashion and intraincisional.? I then placed my guide as well as my tibial array on in place.? This was appropriately secured and had excellent visualization with the Yanick?robot.? Next the tibial checkpoint as well as femur checkpoint were then placed.? At this point time I then subsequently established my head center as well as my medial lateral malleoli as well as my checkpoints.? Next utilizing standard Yanick technology I then mapped out the appropriate points and confirmation points around the femur as well as the tibia in standard fashion.? Once this was then done I then?removed all osteophytes in preparation for dynamic testing.? All osteophytes were?removed as well as I?removed the ACL and the PCL was excised due to its significant tearing and degeneration noted.? At this point time the knee was brought into full extension and we performed our standard evaluation of our gap balancing stressing his ligaments and extension as well as flexion appropriate adjustments were made to have appropriate gap balancing in both flexion and extension.? This plan for final counts.? We get a preoperative plan evaluating our implants which was a size 5 femur and a size 5 tibia.? Next we brought in the [employer]?robot and sequentially made our femur cuts.? All excess bony cuts were then?removed.? Finally we made our tibial cut.? Once this was done a standard PCL?retractor was then placed into this position I excised the medial and lateral meniscus.? The tibial cut was then subsequently?removed all excess bony debris was?removed.? I then utilized a lamina permit coordinator and?remove the posterior osteophytes.? At this point time sized the tibia and confirmed this was a size 5.? I utilized our blunt probe to establish?rotation of tibial implant.? Once this was done I then placed my tibia size 5 trial in appropriate position and then subsequently placed tibial pins to hold this into place placed a size 11 mm poly as well as a size 5 femur which was appropriately impacted in place knee was then subsequently brought into extension. Trials were then assessed, this was stable with varus valgus stress in extension as well as had symmetrical translation when brought into flexion demonstrating symmetrical gaps. I had excellent balance gaps in flexion and extension with varus and valgus stresses.? At this point I was satisfied with these implants these were then verified and opened on the back table size 5 tibia, size 5 femur,? size 11 mm polythickness.? We did confirm appropriate gap balancing and stresses as well as alignment utilizing? Yanick and were satisfied with this plan.? ?At this point time with my trials in place I then towel clip the patella everted this made appropriate measurements subsequently utilizing freehand technique performed by patellar?resurfacing this was confirmed to be appropriate?resection and subsequently sized to be a 33 mm symmetric.? My drill peg guides were then clamped and appropriate position and appropriate position in the patella for appropriate tracking and parallel with the joint.? Pegs were drilled trial implant was placed and the knee was then subsequently?ranged and found to have excellent patellar tracking.? Femur pegs were then drilled.? Satisfied with our tibial placement?rotation I then utilized the keel punch and prepped the tibia.? At this point time all of our trial implants were?removed.? All checkpoints as well as guidepins and arrays were?removed and appropriate counts made.? The wound bed? was thoroughly irrigated and dried and prepped for cementation.? Cement was mixed on the back table.? Once cement was?ready this was then covered onto the tibia and the tibial baseplate was then impacted and all excess cement was?removed.? Next the polyethylene was then impacted into place on the tibial baseplate.? Next cement was placed onto the femur as well as under the femur implants and impacted in to place and all excess cement was extruded and?removed.? Knee was taken into full extension? to clear all excess cement was?removed.? Warm saline was placed over the joint.? I then towel clip patella and dried for cementation. cemented the patella into place.? This was all clamped and the cement was allowed to cure.? Thorough irrigation performed with pulse lavage.? I then placed my periarticular injection while the cement was curing.? Once cured the knee was taken through?range of motion and had excellent stability and gaps were balanced in flexion and extension.? Tourniquet was then deflated. hemostasis satisfactory with electrocautery.? Next I then subsequently closed the capsule with Ethibond suture as well as a?running strata fix suture.? Knee was then taken through?range of motion 30 times.? Next the skin was then closed in layered fashion of?running stratifix sutures of deep and subcutenous tissue and skin.? ?closed in flexion and dermabond glue was then placed over the incision this allowed to cure.? Incision was covered with Silverlon, with ABDs soft?roll and Lisandro wrap.? Patient was then awakened from anesthesia and taken to PACU in stable condition. Disposition: Patient taken to PACU in stable condition will be admitted to the floor for pain control PT/OT weight-bear as tolerated?right lower extremity dressing changes as needed, DVT prophylaxis. Pain control. Patient will?receive appropriate postoperative antibiotics. patient will be seen today by the internal medicine team for medical management.? Patient will follow up with the office in 2 weeks.? Patient understands agrees with current plan.? All questions answered.
--- NOTE | 2023-01-18 10:54 | W.PM.BPON ---
Date of Procedure: [January 18, 2023] Surgeon: [Dr. Ema VENTURA] Touch Up Worker(s): [Andres Boo physician associate] Procedure(s) performed: [Right total knee arthroplasty with Yanick robotic assist] Findings of the procedure(s): [Right knee degenerative joint disease] Estimated blood loss: [50 ml] Specimen(s) removed: [n/a] Post-operative diagnosis: [Right knee degenerative joint disease]
--- NOTE | 2023-01-18 10:56 | PM.PACU ---
PACU note Narrative: Patient is a 57-year-old male that just underwent a right knee total arthroplasty Yanick robotic assist. pt transferred to PACU in stable condition. Dressing is dry. pt is awake and alert. Distal pulses are palpable toes are warm and well-perfused. Cap refill is normal and under 2 seconds. unable to perform any further exam assessment on motor and sensation due to spinal. Exam: awake Disposition: admitted
--- NOTE | 2023-01-18 11:00 | XRR_ITS ---
PROCEDURE INFORMATION: Exam: XR Right Knee Exam date and time: 01/18/2023 12:05 PM Age: 57 years old Clinical indication: Device placement; Joint replacement hardware; Prior surgery; Surgery date: Post-operative (0-2 days); Surgery type: R tka; Additional info: S/P R tka, ap and lateral TECHNIQUE: Imaging protocol: Radiologic exam of the right knee. Views: 1 or 2 views. COMPARISON: CT knee RT [facility] [id number] 01/06/2023 1:05 PM FINDINGS: Bones/joints: Satisfactory immediate postoperative appearance of right total knee arthroplasty. Soft tissues: Postoperative gas. XR/XR knee RT 1-2V [id number] IMPRESSION: Satisfactory postoperative appearance.
--- NOTE | 2023-01-18 14:13 | ANE.PACU2 ---
Inpatient post-anesthesia follow up: Airway intact: Yes Vital signs: Temperature 97.5 F Pulse Rate 60 Respiratory Rate 18 Blood Pressure 115/81 Pulse Oximetry 94 Oxygen Delivery Me thod Room Air Oxygen Flow Rate Fraction of Inspir ed Oxygen Hydration adequate: Yes Nausea and vomiting: No Pain level: 1 Mental status: Baseline
[2023-01-18] MEDS: oxyCODONE 5 mg IR Tab/Cap PO ×2 (15:11→20:05)
--- NOTE | 2023-01-18 16:28 | USR_ITS ---
PROCEDURE INFORMATION: Exam: US Duplex Lower Extremity Veins, Bilateral Exam date and time: 01/18/2023 4:54 PM Age: 57 years old Clinical indication: Condition or disease; Other: Prone to dvt; Prior surgery; Surgery date: Post-operative (0-2 days); Surgery type: Right knee replacement TECHNIQUE: Imaging protocol: Real-time duplex ultrasound of the bilateral extremities with 2-D ramirez scale, color Doppler flow and spectral waveform analysis including responses to compression and other maneuvers (when performed) with image documentation. Complete exam focused on the lower extremity veins. COMPARISON: CT knee RT [facility] [id number] 01/06/2023 1:05 PM FINDINGS: Right deep veins: Unremarkable. The common femoral, femoral, proximal profunda femoral and popliteal veins are patent without thrombus. Normal Doppler waveforms. Normal compressibility and/or augmentation response. Left deep veins: Unremarkable. The common femoral, femoral, proximal profunda femoral and popliteal veins are patent without thrombus. Normal Doppler waveforms. Normal compressibility and/or augmentation response. Superficial veins: Bilateral saphenofemoral junctions are patent without thrombus. Soft tissues: Unremarkable. US/[place] [id number] IMPRESSION: No evidence of deep vein thrombosis.
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
[2023-01-18] MEDS: mupirocin oint 22 gm 1 APPLIC NASAL (17:36)
[2023-01-18] MEDS: iron polysaccharide complex 150 mg Capsule PO (17:36)
[2023-01-18] MEDS: calcium carb-vit d 600mg/400unit 1 Tablet 1 EACH PO (17:36)
[2023-01-18] MEDS: docusate sodium 100 mg Capsule PO (17:36)
[2023-01-18] MEDS: lactated ringers 1,000 ML 100 ML IV (17:37)
[2023-01-18] MEDS: chlorhexidine gluconate 0.12% Btl 473 mL 30 ML MUCOUS MEM ×2 (17:38→21:28)
[2023-01-18] MEDS: TRAMadol 50 mg Tablet PO (17:47)
[2023-01-18] MEDS: zolpidem 5 mg Tablet PO (21:28)
[2023-01-18] MEDS: ketorolac 30 mg/mL INJ 15 MG IVP (21:28)
[2023-01-18] MEDS: HYDROmorphone 1 mg/mL INJ 1 mL 0.5 MG IVP (22:16)
[2023-01-19] VITALS (14 sets, daily range): BP systolic 116–154; BP diastolic 68–85; PULSE 56–85; RESP 15–20; TEMP 36.4–37.8; O2SAT 92–96
[2023-01-19] MEDS: ceFAZolin 2,000 MG in sodium chloride 0.9% (plus) 50 ML 100 MG IV ×2 (01:01→08:47)
[2023-01-19] MEDS: oxyCODONE 5 mg IR Tab/Cap PO ×4 (01:04→18:01)
--- NOTE | 2023-01-19 01:12 | PC.NURSE ---
Oxy IR order change: Pt pain not controlled despite being given Oxy IR 5, Dilaudid and Toradol. Pt also says that the Tramadol did not work earlier so did not try that option again. Received on order to increase the Oxy IR to 5-10mg based on pain level. Pharmacy took over an hour to verify medication and the pt was in pain so this nurse overrode the Oxy IR 10mg in pyxis with RADHA Monroe as witness.
--- NOTE | 2023-01-19 01:52 | PC.NURSE ---
This nursed witnessed HAKAN Lott over ride Oxycodone IR due to pharmacy delay in verifying the order.
[2023-01-19] MEDS: lactated ringers 1,000 ML 100 ML IV (05:25)
[2023-01-19 05:42] LABS: Basophils % 0.3 %; Eosinophils # 0.1 10^3/uL (0.0-0.8); Eosinophils % 0.5 %; Hematocrit 38.5 % (37-53); Lymphocytes # 2.1 10^3/uL (0.8-4.8); Lymphocytes % 19.5 %; Mean Corpuscular HGB Conc 32.7 g/dL (30-55); Mean Corpuscular Hemoglobin 31.6 pg (27-33); Mean Corpuscular Volume 96.5 fl (82-101); Mean Platelet Volume 10.7 fL (7.4-10.4); Monocytes % 9.3 %; Neutrophils # 7.67 10^3/uL (1.8-7.7); Neutrophils % 70.1 %; Nucleated Red Blood Cells % 0 %; Platelet Count 214 10^3/cmm (157-399); Red Blood Count 3.99 10^6/uL (3.85-5.65); White Blood Count 10.94 10^3/uL (3.29-11.43)
[2023-01-19 06:12] LABS: Anion Gap 14.3 (5-19); Blood Urea Nitrogen 14 mg/dL (6-20); Calcium 9.8 mg/dL (8.5-10.5); Carbon Dioxide 24 mmol/L (22-29); Chloride 104 mmol/L (98-107); Glomerular Filtration Rate 116.2 mL/min (90-130); Glucose 118 mg/dL (65-115); Osmolality Calculated 288 mOsm/kg (285-295); Potassium 4.3 mmol/L (3.5-5.1); Sodium 138 mmol/L (136-145)
[2023-01-19] MEDS: apixaban 5 mg Tablet PO ×2 (06:39→18:01)
[2023-01-19] MEDS: acetaminophen 1,000 MG/100 ML PIGGYBACK 400 MG IV (06:39)
[2023-01-19] MEDS: ketorolac 30 mg/mL INJ 15 MG IVP ×3 (06:56→21:30)
[2023-01-19] MEDS: docusate sodium 100 mg Capsule PO ×2 (08:46→18:01)
[2023-01-19] MEDS: multivitamin therapeutic Tablet 1 TAB PO (08:46)
[2023-01-19] MEDS: calcium carb-vit d 600mg/400unit 1 Tablet 1 EACH PO ×2 (08:46→18:01)
[2023-01-19] MEDS: iron polysaccharide complex 150 mg Capsule PO ×2 (08:46→18:04)
[2023-01-19] MEDS: mupirocin oint 22 gm 1 APPLIC NASAL (08:49)
[2023-01-19] MEDS: chlorhexidine gluconate 0.12% Btl 473 mL 30 ML MUCOUS MEM ×2 (08:49→20:19)
[2023-01-19] MEDS: TRAMadol 50 mg Tablet PO (08:53)
[2023-01-19] MEDS: HYDROcodone-acetaminophen 5-325 mg Tablet 1 TAB PO ×2 (09:50→12:20)
--- NOTE | 2023-01-19 10:41 | PC.CHAP ---
Pastoral Care Encounter/Spiritual Assessment Type of Contact [] Declined business development executive visit [] Patient/Family/Request visit [] Outpatient visit [] Follow-up visit [] Physician referral [] Code/Alert [x] Routine visit [] Staff referral [] Actively dying [] Patient sleeping [] Family support [] [] Out of room [] Palliative care [] [x] Receiving care in room [] Pre-surgical visit [] Trauma [] Long length of stay [] ICU visit [] Other: Relational/Emotional Strength [x] Patient feels connected with others/family/visitors/staff [] Distress [] Loneliness/isolation [] Abandonment Spirituality of Patient [x] Person of Carolynn [] Attends Restorationism of their [place] [x] Believes in Prayer [] Reads Bible or Faith materials [] There are Spiritual issues to be addressed Firepot Operator And Tender Interventions [x] Prayer [x] Active listening [x] Non-anxious presence [x] Spiritual/emotional support [] Crisis/trauma care [x] Spiritual counseling [] Bereavement support [] Provided bereavement packet [] Provided Bible/devotional materials [] Provided toy/stuffed animal, coloring book to patient or family member [] Provided Communion [] Anointing/[place] [] Salvation [x] Completed spiritual assessment [] Other: Impact on Illness or Injury [] Angry [] Fearful [] Anxious [] Often cries [] Exhaustion [] Unable to work [] Unable to attend jewish [] Unable to walk/stand [] Unable to read [] Unable to drive [] Unable to eat/drink [] Unable to sleep [] Unable to be with family [] Patient intubated [] Other: Summary ankel replacement posative results well need some rehab and check ups +1 well be going home Time spent with patient 10 mins
[2023-01-19] MEDS: HYDROmorphone 1 mg/mL INJ 1 mL 0.5 MG IVP ×2 (11:42→20:52)
--- NOTE | 2023-01-19 12:35 | P.PN_ITS ---
Subjective 2 Subjective: Patient was seen this morning, denies any fevers, chills, no cough Vitals/I&O/Wt Last Vital Signs Temp 98.6 F 01/19/23 11:57 Pulse 62 01/19/23 11:57 Resp 18 01/19/23 11:57 BP 143/81 01/19/23 11:57 Pulse Ox 96 01/19/23 11:57 O2 Del Method Room Air 01/19/23 04:23 01/18/23 01/19/23 01/19/23 22:59 06:59 14:59 Intake Total 490 / 1340 1150 / 2490 650 / 650 Output Total 700 / 1000 Balance 490 / 1040 450 / 1490 650 / 650 Weight last 48 hrs Weight 113.88 kg Weight 102.058 kg Weight 102.058 kg Physical Exam 2 Const: COMMON NORMALS: no acute distress and patient oriented x3 Resp: COMMON NORMALS: normal respiratory effort, No retractions, No use of accessory muscles and clear to auscultation bilaterally AUSCULTATION: clear to auscultation bilaterally Cardio: COMMON NORMALS: regular rate, regular rhythm, S1 normal heart sound present and S2 normal heart sound present RATE: regular rate RHYTHM: r egular rhythm HEART SOUNDS: S1 normal heart sound present and S2 normal heart sound present GI: COMMON NORMALS: Normal to inspection, nondistended, normoactive bowel sounds present and non-tender Extremity: COMMON NORMALS: no pedal edema Neuro: COMMON NORMALS: patient oriented x3 Psych: COMMON NORMALS: mental status grossly normal Urinary Catheter Management: Sharif: Cath Placed During This Visit: yes Reason for Continuing Indwelling Catheter: Perioperative Use in Selected Surgeries Urinary Catheter Date of Insertion: 01/18/23 Urinary Catheter Time of Insertion: 08:45 Data 01/19/23 05:30 01/19/23 05:30 A&P Assessment and plan (1) Factor V deficiency: (2) DVT (deep venous thrombosis): (3) S/P IVC filter: (4) Right knee DJD: Plan Status post right knee surgery, ? Start Eliquis 5 mg p.o. twice daily for hypercoagulable events starting tomorrow, ? Would recommend at least 30 days of anticoagulant therapy -Discussed risk and benefits of anticoagulation, shared decision making, after he voiced understanding, all questions answered, agreed to proceed, ? Discussed with him that Eliquis compared to Lovenox or Coumadin has not been well studied in individuals with factor V Leiden, to decrease risk of hypercoagulable events, but it is easier to administer, ? Patient tells me that a few years ago he was offered Eliquis but could not afford it at that time ? Discussed risks and benefits of Eliquis, to decrease the risk of hypercoagulable events after surgery in a patient with factor V Leiden, he voiced understanding, all questions answered, shared decision making, agrees to proceed Attestations 2 Medical Necessity Statement*: Patient will be discharged today Diagnoses Factor V deficiency D68.2 DVT (deep venous thrombosis) I82.409 S/P IVC filter Z95.828 Right knee DJD M17.11
--- NOTE | 2023-01-19 13:24 | P.PN_ITS ---
Documented by User: BIPIN Peterson 01/19/23 16:12 Subjective 2 Subjective: Pt is 1 day post op right TKA. No acute events over night. Pt has gotten up and ambulated with PT today. Denies any fevers, n/v. Pt is having quite a bit of pain and having trouble getting it controlled with pain meds. Vitals/I&O/Wt Last Vital Signs Temp 98.6 F 01/19/23 11:57 Pulse 62 01/19/23 11:57 Resp 18 01/19/23 11:57 BP 143/81 01/19/23 11:57 Pulse Ox 96 01/19/23 11:57 O2 Del Method Room Air 01/19/23 04:23 01/18/23 01/19/23 01/19/23 22:59 06:59 14:59 Intake Total 490 / 1340 1150 / 2490 650 / 650 Output Total 700 / 1000 Balance 490 / 1040 450 / 1490 650 / 650 Weight last 48 hrs Weight 251 lb 1 oz Weight 225 lb Weight 225 lb Physical Exam 2 Const: COMMON NORMALS: no acute distress and alert Resp: COMMON NORMALS: normal respiratory effort and No retractions Cardio: COMMON NORMALS: Peripheral pulses 2+ throughout PERIPHERAL PULSES: Peripheral pulses 2+ throughout Extremity: NARRATIVE EXTREMITY EXAM: Right knee--bandage/dressing is intact, dry and in place. pt is able to dorsiflex and plantar flex and perform straight leg raise. pedal pulse 2 +. Neuro: SENSORIUM/ORIENTATION: Yes alert Skin: GENERAL SKIN EXAM: dry skin Urinary Catheter Management: Sharif: Cath Placed During This Visit: yes Reason for Continuing Indwelling Catheter: Perioperative Use in Selected Surgeries Urinary Catheter Date of Insertion: 01/18/23 Urinary Catheter Time of Insertion: 08:45 Data 01/19/23 17:55 01/19/23 17:55 A&P Assessment and plan (1) Status post total right knee replacement using cement: Plan Plan: -Imaging and Labs reviewed -Hospitalist on board for medical management. -DVT prophylaxis- per hospitalist -Weight-bear as tolerated on right leg -Pain control -PT Pt is doing well 1 day postop Right total knee replacement. Pt is cleared for discharge home today. Attestations 2 Medical Necessity Statement*: ongoing care for Right TKA Coding Level of Care Code Acute Code for Chg Fwd Diagnoses Status post total right knee replacement using cement Z96.651 Documented by User: Armando Boo DO 01/20/23 00:36 Physical Exam 2 Extremity: NARRATIVE EXTREMITY EXAM: Right knee--bandage/dressing is intact, dry and in place. pt is able to dorsiflex and plantar flex and perform straight leg raise. pedal pulse 2 +. Compartments are soft and compressible. Calf soft and nontender. Urinary Catheter Management: Sharif: Cath Placed During This Visit: yes Data 01/19/23 17:55 01/19/23 17:55 A&P Assessment and plan (1) Status post total right knee replacement using cement: Plan Plan: -Imaging and Labs reviewed -Hospitalist on board for medical management. -DVT prophylaxis- per hospitalist -Weight-bear as tolerated on right leg -Pain control -PT Pt is doing well 1 day postop Right total knee replacement. Pt is cleared for discharge home today. Orthopedic attending: Attestation: Agree with PAs assessment and plan. Patient was set up for discharge today however prior to discharge she had a small low-grade fever. Internal medicine was consulted there doing a workup and would recommend another additional night stay given patient does have high risk factors. Will continue to follow along and plan for likely discharge home tomorrow if workup Is negative. encourage incentive spirometry at this time. Orthopedics will round on patient tomorrow. Coding Level of Care Code Acute Code for Chg Fwd Diagnoses Status post total right knee replacement using cement Z96.651
[2023-01-19] MEDS: HYDROcodone-acetaminophen 10-325 mg Tablet 1 TAB PO ×3 (14:58→23:31)
--- NOTE | 2023-01-19 16:24 | P.DS_ITS ---
Discharge Providers Date of Admission: 01/18/23 15:40 Date of Discharge: January 19, 2023 Attending Provider at Admission: Armando Boo DO Attending Provider at Discharge: Armando Boo DO Primary Care Provider: Andres Stoll MD Diagnoses at Discharge Discharge Diagnosis (1) Status post total right knee replacement using cement: Status: Acute Reason for Visit Reason for Visit: K80.20 Physical Exam Urinary Catheter Management: Sharif: Cath Placed During This Visit: yes Reason for Continuing Indwelling Catheter: Perioperative Use in Selected Surgeries Urinary Catheter Date of Insertion: 01/18/23 Urinary Catheter Time of Insertion: 08:45 Discharge Data Studies Completed and Pending Completed Studies During Hospitalization Category Date Time Status XR knee RT 1-2V [id number] Routine Exams 01/18/23 11:00 Completed US venous duplex lower extremity bilat [CV venous Ultrasound 01/18/23 16:28 [place] [id number]] Routine Pending at discharge Category Date Time Status Basic Metabolic Panel AM LABS Lab 01/20/23 04:00 Ordered Basic Metabolic Panel AM LABS Lab 01/21/23 04:00 Ordered Complete Blood Count w/Auto AM LABS Lab 01/20/23 04:00 Ordered Complete Blood Count w/Auto AM LABS Lab 01/21/23 04:00 Ordered Radiology Impressions Knee X-Ray 01/18/23 11:00 IMPRESSION: Satisfactory postoperative appearance. Venous Duplex 01/18/23 16:28 IMPRESSION: No evidence of deep vein thrombosis. Laboratory Results WBC 10.94 10^3/uL (3.29-11.43) 01/19/23 05:30 RBC 3.99 10^6/uL (3.85-5.65) 01/19/23 05:30 Hgb 12.60 g/dL (11.27-16.99) 01/19/23 05:30 Hct 38.5 % (37-53) 01/19/23 05:30 MCV 96.5 fl (82-101) 01/19/23 05:30 MCH 31.6 pg (27-33) 01/19/23 05:30 MCHC 32.7 g/dL (30-55) 01/19/23 05:30 RDW 13.0 % (12.1-15.1) 01/19/23 05:30 Plt Count 214 10^3/cmm (157-399) 01/19/23 05:30 MPV 10.7 fL (7.4-10.4) H 01/19/23 05:30 Neut % (Auto) 70.1 % 01/19/23 05:30 Lymph % (Auto) 19.5 % 01/19/23 05:30 Emmet % (Auto) 9.3 % 01/19/23 05:30 Eos % (Auto) 0.5 % 01/19/23 05:30 Baso % (Auto) 0.3 % 01/19/23 05:30 Neut # (Auto) 7.67 10^3/uL (1.8-7.7) 01/19/23 05:30 Lymph # (Auto) 2.1 10^3/uL (0.8-4.8) 01/19/23 05:30 Emmet # (Auto) 1.0 10^3/uL (0.2-0.9) H 01/19/23 05:30 Eos # (Auto) 0.1 10^3/uL (0.0-0.8) 01/19/23 05:30 Baso # (Auto) 0.0 10^3/uL (0.0-0.1) 01/19/23 05:30 Nucleated RBC % (auto) 0 % 01/19/23 05:30 Nucleated RBCs # 0.0 /100WBC 01/19/23 05:30 PT 13.30 SECONDS (12.1-14.9) 01/18/23 07:39 INR 0.98 (0.8-1.2) 01/18/23 07:39 Sodium 138 mmol/L (136-145) 01/19/23 05:30 Potassium 4.3 mmol/L (3.5-5.1) 01/19/23 05:30 Chloride 104 mmol/L (98-107) 01/19/23 05:30 Carbon Dioxide 24 mmol/L (22-29) 01/19/23 05:30 Anion Gap 14.3 (5-19) 01/19/23 05:30 BUN 14 mg/dL (6-20) 01/19/23 05:30 Creatinine 0.7 mg/dL (0.7-1.2) 01/19/23 05:30 GFR Calculation 116.2 mL/min (90-130) 01/19/23 05:30 Glucose 118 mg/dL (65-115) H 01/19/23 05:30 Calculated Osmolality 288 mOsm/kg (285-295) 01/19/23 05:30 Calcium 9.8 mg/dL (8.5-10.5) 01/19/23 05:30 Blood Type O Positive 01/18/23 06:13 Rho(D) Type Rh positive 01/18/23 06:13 Antibody Screen Negative 01/18/23 06:13 Vitals Last Vital Signs Temp 98.6 F 01/19/23 11:57 Pulse 62 01/19/23 11:57 Resp 16 01/19/23 13:56 BP 143/81 01/19/23 11:57 Pulse Ox 96 01/19/23 11:57 O2 Del Method Room Air 01/19/23 04:23 Discharge Plan Discharge Patient Disposition: Home Condition: Stable Prescriptions: New Eliquis 5 mg Tablet 5 mg PO Q12H 30 Days Qty: 60 0RF ondansetron 4 mg tablet,disintegrating 4 mg PO Q8H PRN (Reason: nausea and vomiting) 3 Days Qty: 9 0RF oxycodone 10 mg tablet 10 mg PO Q6H PRN (Reason: pain) 7 Days Qty: 28 0RF methocarbamol 500 mg tablet 500 mg PO Q8H 7 Days Qty: 21 0RF Continued multivitamin Tablet 1 tab PO DAILY allopurinol 300 mg tablet 300 mg PO DAILY Qty: 90 2RF sertraline 100 mg tablet 50 mg PO DAILY Discontinued aspirin 81 mg tablet,delayed release (DR/EC) 81 mg PO DAILY enoxaparin [Lovenox] 30 mg/0.3 mL syringe 30 mg SUBCUT Q12H 14 Days Qty: 8.4 0RF cyclobenzaprine 10 mg tablet 10 mg PO TID PRN (Reason: Muscle Spasm) Discharge Orders: Discharge Order (Routine); Ordered 01/19/23 Ordered By: Leandro Cobian Other Ambulatory Orders: Physical Therapy Eval and Treat Outpatient (Order) Timeframe: 3 Days Facility: [facility] - Location: Physical Therapy Ordered By: Leandro Cobian Referrals: OutPatient Physical Therapy at the [facility] [Other] (Someone at the [facility] will call you at home to setup a date & time for you to come in for outpatient therapy. If you have not heard from them, please call them to follow up. ) Ladarius Fitch MD [Hospitalist] - 1 month (We have notified your physician's clinic of the need for a follow-up appointment to be scheduled. If you have not heard from them within the next 2 business days, please call them directly. ) Armando Boo DO [Physician] - 02/02/23 8:00 am () Andres Stoll MD [Primary Care Provider] - Discharge Diet: Advance as tolerated Discharge Activity: Limit activity as instructed and Use walker/crutches as instructed Patient Instructions: Oxycodone, Rapid Release (By mouth), Ondansetron (By mouth), Apixaban (By mouth), Total Knee Replacement (GEN), Joint Replacement Stoplight, Opioid Safety Activity Restrictions/Additional Instructions: Orthopedic DC instructions: Keep incisions clean dry and intact, leave Silverlon bandage dressings on in place for 7 days after that may rinse incisions with warm soapy water pat dry and redress with a dry dressing. Patient may weight-bear as tolerate to the operative extremity Utilize crutches as needed Encourage knee range of motion Ice and elevate as needed for pain and swelling Take pain medication as prescribed Take antinausea medication as needed The prescribed Eliquis twice daily for the next 30 days for blood clot prevention No baths or soaks Follow-up in the orthopedic office in 2 weeks Contact the office for any questions or concerns -after 4 weeks of eliquis please see , decision on how long to take anticoagulation after that, will depend on consultation with Dr. Fitch in a month Coding Level of Care Code Acute Code for Chg Fwd Diagnoses Status post total right knee replacement using cement Z96.651
--- NOTE | 2023-01-19 16:59 | XRR_ITS ---
PROCEDURE INFORMATION: Exam: XR Chest Exam date and time: 01/19/2023 7:08 PM Age: 57 years old Clinical indication: Other: Temp TECHNIQUE: Imaging protocol: Radiologic exam of the chest. Views: 1 view. COMPARISON: CR XR chest 1V portable [id number] 08/23/2020 12:18 PM FINDINGS: Lungs: No consolidation, mass, or pulmonary edema. Pleural spaces: No pneumothorax or obvious pleural effusion. Heart/Mediastinum: Cardiomediastinal silhouette is stable and unremarkable. Bones/joints: No acute osseous abnormality. XR/XR chest 1V portable [id number] IMPRESSION: No acute findings.
[2023-01-19 18:29] LABS: Add Urine Microscopic? YES; Bilirubin Urine Neg (Negative); Blood Urine 2+ (Negative); Glucose Urine UA Norm (Normal); Ketones Urine Negative (Negative); Leukocyte Esterase Urine Negative (Negative); Nitrate Urine Negative (Negative); Protein Urine Neg (Negative); Urine Appearance Clear (CLEAR); Urine Color Colorless (Yellow); Urobilinogen Urine Norm (Negative); pH Urine 6 (5-7)
[2023-01-19 18:45] LABS: RBC Urine 0-4 /hpf (0-2); Squamous Epithelial Cell Urine RARE /hpf (0-5); WBC Urine 0-4 /hpf (0-5)
[2023-01-19 18:46] LABS: Add Urine Culture? No
[2023-01-19 18:51] LABS: Alanine Aminotransferase 29 U/L (0-41); Albumin Level 3.9 g/dL (3.5-5.2); Alkaline Phosphatase 79 U/L (40-130); Anion Gap 15.6 (5-19); Aspartate Amino Transferase 22 U/L (0-40); Blood Urea Nitrogen 13 mg/dL (6-20); C Reactive Protein 42.8 mg/L (0.0-4.9); Calcium 9.5 mg/dL (8.5-10.5); Carbon Dioxide 25 mmol/L (22-29); Chloride 99 mmol/L (98-107); Globulin 2.7 g/dL (1.3-4.6); Glomerular Filtration Rate 99.6 mL/min (90-130); Glucose 126 mg/dL (65-115); Osmolality Calculated 284 mOsm/kg (285-295); Potassium 3.6 mmol/L (3.5-5.1); Sodium 136 mmol/L (136-145); Total Bilirubin 0.4 mg/dL (0.15-1.2); Total Protein 6.6 g/dL (6.6-8.7)
[2023-01-19 18:54] LABS: Basophils # 0.1 10^3/uL (0.0-0.1); Basophils % 0.5 %; Eosinophils # 0.2 10^3/uL (0.0-0.8); Eosinophils % 1.6 %; Hematocrit 39.3 % (37-53); Lymphocytes # 2.1 10^3/uL (0.8-4.8); Lymphocytes % 20.5 %; Mean Corpuscular HGB Conc 32.8 g/dL (30-55); Mean Corpuscular Hemoglobin 31.5 pg (27-33); Mean Corpuscular Volume 95.9 fl (82-101); Mean Platelet Volume 11.5 fL (7.4-10.4); Neutrophils # 6.86 10^3/uL (1.8-7.7); Neutrophils % 66.9 %; Nucleated Red Blood Cells % 0 %; Platelet Count 221 10^3/cmm (157-399); Red Cell Distribution Width 13.2 % (12.1-15.1); White Blood Count 10.25 10^3/uL (3.29-11.43)
[2023-01-19 18:57] LABS: Procalcitonin 0.08 ng/mL (0-0.5)
[2023-01-19 19:58] LABS: Adenovirus Not Detected (NOT DETECT); Chlamydia Pneumoniae Not Detected (NOT DETECT); Coronavirus 229E,HKU1,NL63,OC4 Not Detected (NOT DETECT); Human Metapneumovirus Not Detected (NOT DETECT); Human Rhinovirus/Enterovirus Not Detected (NOT DETECT); Influenza A Not Detected (NOT DETECT); Influenza A H1 Not Detected (NOT DETECT); Influenza A H1-2009 Not Detected (NOT DETECT); Influenza A H3 Not Detected (NOT DETECT); Influenza B Not Detected (NOT DETECT); Mycoplasma Pneumoniae Not Detected (NOT DETECT); Parainfluenza Virus Type 1 Not Detected (NOT DETECT); Parainfluenza Virus Type 2 Not Detected (NOT DETECT); Parainfluenza Virus Type 3 Not Detected (NOT DETECT); Parainfluenza Virus Type 4 Not Detected (NOT DETECT); Respiratory Syncytial Virus A Not Detected (NOT DETECT); Respiratory Syncytial Virus B Not Detected (NOT DETECT); SARS-COV-2 Not Detected (NOT DETECT)
[2023-01-19] MEDS: methocarbamol 500 mg Tablet PO (20:21)
[2023-01-19] MEDS: cyclobenzaprine 10 mg Tablet PO (23:52)
[2023-01-20] VITALS (8 sets, daily range): BP systolic 122–136; BP diastolic 67–82; PULSE 74–80; RESP 15–18; TEMP 36.7–37.2; O2SAT 93–95
[2023-01-20] MEDS: HYDROmorphone 1 mg/mL INJ 1 mL 0.5 MG IVP ×3 (01:14→15:00)
[2023-01-20] MEDS: HYDROcodone-acetaminophen 10-325 mg Tablet 1 TAB PO ×4 (03:30→16:52)
[2023-01-20] MEDS: apixaban 5 mg Tablet PO (05:32)
[2023-01-20] MEDS: TRAMadol 50 mg Tablet PO ×3 (05:32→14:11)
[2023-01-20] MEDS: ketorolac 30 mg/mL INJ 15 MG IVP ×2 (05:40→12:13)
[2023-01-20 05:50] LABS: Basophils # 0.1 10^3/uL (0.0-0.1); Basophils % 0.6 %; Eosinophils # 0.3 10^3/uL (0.0-0.8); Eosinophils % 2.5 %; Hematocrit 39.4 % (37-53); Lymphocytes # 2.9 10^3/uL (0.8-4.8); Lymphocytes % 28.3 %; Mean Corpuscular HGB Conc 31.7 g/dL (30-55); Mean Corpuscular Hemoglobin 30.7 pg (27-33); Mean Corpuscular Volume 96.8 fl (82-101); Mean Platelet Volume 10.9 fL (7.4-10.4); Monocytes # 1.2 10^3/uL (0.2-0.9); Monocytes % 11.6 %; Neutrophils # 5.76 10^3/uL (1.8-7.7); Neutrophils % 56.4 %; Nucleated Red Blood Cells % 0 %; Platelet Count 211 10^3/cmm (157-399); Red Blood Count 4.07 10^6/uL (3.85-5.65); Red Cell Distribution Width 13.2 % (12.1-15.1); White Blood Count 10.21 10^3/uL (3.29-11.43)
[2023-01-20 06:15] LABS: Anion Gap 12.2 (5-19); Blood Urea Nitrogen 12 mg/dL (6-20); Calcium 9.3 mg/dL (8.5-10.5); Carbon Dioxide 29 mmol/L (22-29); Chloride 100 mmol/L (98-107); Glomerular Filtration Rate 99.6 mL/min (90-130); Glucose 138 mg/dL (65-115); Osmolality Calculated 286 mOsm/kg (285-295); Potassium 4.2 mmol/L (3.5-5.1); Sodium 137 mmol/L (136-145)
[2023-01-20] MEDS: cyclobenzaprine 10 mg Tablet PO ×2 (08:07→14:11)
[2023-01-20] MEDS: multivitamin therapeutic Tablet 1 TAB PO (08:07)
[2023-01-20] MEDS: iron polysaccharide complex 150 mg Capsule PO (08:08)
[2023-01-20] MEDS: calcium carb-vit d 600mg/400unit 1 Tablet 1 EACH PO (08:08)
[2023-01-20] MEDS: methocarbamol 500 mg Tablet PO ×2 (08:08→14:11)
[2023-01-20] MEDS: docusate sodium 100 mg Capsule PO (08:08)
[2023-01-20] MEDS: mupirocin oint 22 gm 1 APPLIC NASAL (08:09)
[2023-01-20] MEDS: chlorhexidine gluconate 0.12% Btl 473 mL 30 ML MUCOUS MEM ×2 (08:09→14:11)
--- NOTE | 2023-01-20 09:37 | PC.NURSE ---
Rounded on patient, he had asked for a warm blanket and for the heat to be turned up, he stated he felt as though he had a fever. Obtained temperature via axillary with the result of 98.0F. Informed Nell Davalos RN of patient's status, she verbalizes understanding.
[2023-01-20] MEDS: sertraline 50 mg Tablet PO (10:08)
[2023-01-20] MEDS: CLONazepam 0.5 mg Tablet 0.25 MG PO (10:11)
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
== END 2023-01-20 17:00 | disposition home or self-care (01) ==
LOC: MEDSURG 15:40
PROVIDERS: Anesthesiology; Family Medicine; Physician Assistant; Admitting Provider Student in an Organized Health Care Education/Training Program; PCP Family Medicine; Visit Provider Student in an Organized Health Care Education/Training Program
PROC: 8E0Y0CZ Robotic Assisted Procedure of Lower Extremity, Open Approach (ICD-10-PCS; CPT 27447; principal; 2023-01-18 07:30)
DX: M17.11 Unilateral primary osteoarthritis, right knee (principal); Z86.718 Personal history of other venous thrombosis and embolism; D68.2 Hereditary deficiency of other clotting factors; I82.409 Acute embolism and thrombosis of unspecified deep veins of unspecified lower extremity; Z95.828 Presence of other vascular implants and grafts; Z79.82 Long term (current) use of aspirin; N40.1 Benign prostatic hyperplasia with lower urinary tract symptoms; N13.8 Other obstructive and reflux uropathy
CPT/HCPCS: 20985; 27447; 36415; 51702; 71045; 73560; 80048; 80053; 81001; 84145; 85025; 85610; 86140; 86850; 86900; 87040; 87486; 87581; 87633; 93970; 97110; 97116; 97161; 97165; 97530; C1776; G0378; J0131; J0171; J0690; J1100; J1170; J1885; J2250; J2704; J2795; J3010; J7030; J7120

== ENCOUNTER 2023-01-23 15:53 | Outpatient (RCR) | payer MEDICARE, OTHER, SELFPAY | END 2023-02-19 23:59 | disposition home or self-care (01) | LOC: SPT 15:53 | PROVIDERS: PCP Family Medicine; Visit Provider Student in an Organized Health Care Education/Training Program | DX: M17.11 Unilateral primary osteoarthritis, right knee (principal) | CPT/HCPCS: 97110; 97161; G0283 ==

== ENCOUNTER → 2023-01-31 15:02 | Outpatient (BNVA) | payer MEDICARE, OTHER, SELFPAY | PROVIDERS: PCP Family Medicine; Visit Provider Student in an Organized Health Care Education/Training Program | DX: Z96.651 Presence of right artificial knee joint (principal) | CPT/HCPCS: 73560; 73565; 99024 ==

== ENCOUNTER 2023-02-20 06:00 | Outpatient (RCR) | payer MEDICARE, OTHER, SELFPAY | END 2023-03-22 23:59 | disposition home or self-care (01) | LOC: SPT 06:00 | PROVIDERS: PCP Family Medicine; Visit Provider Student in an Organized Health Care Education/Training Program | DX: Z47.1 Aftercare following joint replacement surgery (principal); Z96.651 Presence of right artificial knee joint | CPT/HCPCS: 97110 ==

== ENCOUNTER 2023-02-27 07:54 | Oncology outpatient (recurring) (ONCR) | payer MEDICARE, OTHER, SELFPAY ==
[2023-02-27 08:09] VITALS: BP 139/89; PULSE 66; RESP 18; TEMP 36.5; O2SAT 97
[2023-02-27 08:39] LABS: Basophils # 0.1 10^3/uL (0.0-0.1); Basophils % 0.8 %; Eosinophils # 0.2 10^3/uL (0.0-0.8); Eosinophils % 3.2 %; Hematocrit 45.8 % (37-53); Lymphocytes # 2.2 10^3/uL (0.8-4.8); Lymphocytes % 35.4 %; Mean Corpuscular HGB Conc 32.8 g/dL (30-55); Mean Corpuscular Hemoglobin 30.4 pg (27-33); Mean Corpuscular Volume 92.9 fl (82-101); Monocytes # 0.5 10^3/uL (0.2-0.9); Monocytes % 7.3 %; Neutrophils # 3.29 10^3/uL (1.8-7.7); Neutrophils % 52.2 %; Nucleated Red Blood Cells % 0 %; Platelet Count 306 10^3/cmm (157-399); Red Blood Count 4.93 10^6/uL (3.85-5.65); Red Cell Distribution Width 13.4 % (12.1-15.1)
[2023-02-27 08:54] LABS: INR 0.95 (0.8-1.2); Partial Thromboplastin Time 27.8 SECONDS (23.9-36.7)
[2023-02-27 09:06] LABS: Alanine Aminotransferase 55 U/L (0-41); Albumin Level 4.2 g/dL (3.5-5.2); Alkaline Phosphatase 94 U/L (40-130); Anion Gap 14.9 (5-19); Aspartate Amino Transferase 27 U/L (0-40); Blood Urea Nitrogen 12 mg/dL (6-20); Calcium 9.6 mg/dL (8.5-10.5); Carbon Dioxide 28 mmol/L (22-29); Chloride 98 mmol/L (98-107); Globulin 2.9 g/dL (1.3-4.6); Glomerular Filtration Rate 99.6 mL/min (90-130); Glucose 100 mg/dL (65-115); Osmolality Calculated 284 mOsm/kg (285-295); Potassium 3.9 mmol/L (3.5-5.1); Sodium 137 mmol/L (136-145); Total Bilirubin 0.6 mg/dL (0.15-1.2); Total Protein 7.1 g/dL (6.6-8.7)
[2023-03-03 15:59] LABS: Factor 5 Leiden Mutation POSITIVE
[2023-03-04 12:44] LABS: PROTHROMBIN (FACTOR II) 20210G NEGATIVE
== END 2023-03-22 23:59 | disposition home or self-care (01) ==
PROVIDERS: Internal Medicine; PCP Family Medicine; Visit Provider Student in an Organized Health Care Education/Training Program
DX: D68.2 Hereditary deficiency of other clotting factors (principal); Z79.01 Long term (current) use of anticoagulants
CPT/HCPCS: 36415; 80053; 81241; 85025; 85210; 85610; 85730

== ENCOUNTER 2023-02-28 07:03 | Outpatient (CLI) | payer MEDICARE, OTHER, SELFPAY ==
--- NOTE | 2023-02-28 07:30 | US_ITS ---
WS: [id number] URINARY BLADDER ULTRASOUND HISTORY: urinary retention COMPARISON: None available. Urinary bladder is well distended. No intraluminal filling defect. No free fluid adjacent to the urin maya bladder. Prostate gland is mildly enlarged and heterogeneous measuring 4.4 x 4.0 x 3.2 cm. Bladder Wall Thickness: 0.2 cm. Bladder Prevoid: 10.6 cm x 10.8 cm x 7.2 cm. Prevoid volume: 433 cc3. Bladder Postvoid: 4.8 cm x 5.2 cm x 3.2 cm. Postvoid volume: 42 cc3. IMPRESSION: 1. There is very mild urinary retention after voiding. 2. Mild prostate gland enlargement and encroachment.
== END 2023-02-28 07:04 | disposition home or self-care (01) ==
LOC: RAD 07:03
PROVIDERS: PCP Family Medicine; Visit Provider Family Medicine
DX: R33.9 Retention of urine, unspecified (principal); R35.0 Frequency of micturition; N40.1 Benign prostatic hyperplasia with lower urinary tract symptoms
CPT/HCPCS: 76857

== ENCOUNTER → 2023-03-07 15:09 | Outpatient (BNVA) | payer MEDICARE, OTHER, SELFPAY | PROVIDERS: PCP Family Medicine; Visit Provider Student in an Organized Health Care Education/Training Program | DX: M70.61 Trochanteric bursitis, right hip | CPT/HCPCS: 73502; 73560; 73565; 99214; J3301; J3490 ==

== ENCOUNTER 2023-03-23 06:00 | Outpatient (RCR) | payer MEDICARE, OTHER, SELFPAY | END 2023-04-20 23:59 | disposition home or self-care (01) | LOC: SPT 06:00 | PROVIDERS: PCP Family Medicine; Visit Provider Student in an Organized Health Care Education/Training Program | DX: Z47.1 Aftercare following joint replacement surgery (principal); Z96.651 Presence of right artificial knee joint | CPT/HCPCS: 97110 ==

== ENCOUNTER 2023-04-04 08:04 | Oncology outpatient (recurring) (ONCR) | payer MEDICARE, OTHER, SELFPAY | END 2023-04-20 23:59 | disposition home or self-care (01) | LOC: ONCMED 08:05 | PROVIDERS: PCP Family Medicine; Visit Provider Student in an Organized Health Care Education/Training Program | DX: D68.51 Activated protein C resistance (principal); Z79.01 Long term (current) use of anticoagulants; N40.1 Benign prostatic hyperplasia with lower urinary tract symptoms; R39.12 Poor urinary stream; R35.1 Nocturia; Z86.718 Personal history of other venous thrombosis and embolism; Z86.711 Personal history of pulmonary embolism | CPT/HCPCS: 99205 ==

== ENCOUNTER 2023-05-15 12:43 | Outpatient (CLI) | payer MEDICARE, OTHER, SELFPAY ==
--- NOTE | 2023-05-15 13:00 | USCV_ITS ---
Mikhail Do Age: 58 Gender: M : 1965 Exam Date: 05/15/2023 12:56 Ordering Phys: Teo Bender NP Technologist: SMITH [place] [facility] [place]: [place] DVT, HISTORY: Left lower extremity swelling. DVT left calf history PROCEDURES: Venous duplex imaging was performed in only the left lower extremity. The following venous structures were evaluated: common femoral vein, profunda vein, proximal portion of the greater saphenous vein, superficial femoral vein, and the popliteal vein. In addition, the posterior tibial and peroneal trunk were evaluated. FINDINGS: left thigh veins appear to compress normally and appear dilated. Left popliteal and peroneal veins do not compress normally. Visible thrombus noted in both vessels with decreased flow noted. CONCLUSIONS DVT Left popliteal and peroneal veins Remainder LLE patent Provider notified by Billing Auditor at time of exam Teo Bender APRN was contacted with preliminary positive left leg DVT Boris Millan MD (Electronically Signed) Final Date: 18 May 2023 08:54 S
--- NOTE | 2023-05-15 13:18 | US_ITS ---
WS: [id number] Exam: US bladder [id number] Date/Time of Exam: 05/15/2023 1:20 PM Reason For Exam: urinary retention Sagittal and transverse post void images of the urinary bladder are submitted. A total of 2 images ar e presented. Post void volume in the bladder is 110.67 mL. No obvious intraluminal filling defect in the bladder b ased on limited imaging. IMPRESSION: 1. Post void bladder volume of 110.67 mL.
== END 2023-05-15 12:44 | disposition home or self-care (01) ==
PROVIDERS: PCP Family Medicine; Visit Provider Clinical Nurse Specialist Adult Health
DX: M79.662 Pain in left lower leg (principal); R11.2 Nausea with vomiting, unspecified; R39.11 Hesitancy of micturition; I82.432 Acute embolism and thrombosis of left popliteal vein; I82.452 Acute embolism and thrombosis of left peroneal vein; R33.9 Retention of urine, unspecified
CPT/HCPCS: 76857; 80053; 81000; 85025; 86140; 93971; J2550

== ENCOUNTER 2023-05-22 10:25 | Emergency (ER) | payer MEDICARE, OTHER, SELFPAY ==
[2023-05-22 10:30] VITALS: BP 159/89; PULSE 70; RESP 16; TEMP 36.9; O2SAT 98; BMI 31.5
[2023-05-22 11:01] VITALS: BP 131/87; PULSE 64; O2SAT 95
--- NOTE | 2023-05-22 11:08 | XRR_ITS ---
PROCEDURE INFORMATION: Exam: XR Chest Exam date and time: 05/22/2023 11:12 AM Age: 58 years old Clinical indication: Pain; Angina pectoris; Additional info: Cp TECHNIQUE: Imaging protocol: Radiologic exam of the chest. Views: 1 view. COMPARISON: CR XR chest 1V portable [id number] 01/19/2023 7:08 PM FINDINGS: Lungs: Unremarkable. No consolidation. Pleural spaces: Unremarkable. No pleural effusion. No pneumothorax. Heart/Mediastinum: Unremarkable. No cardiomegaly. Bones/joints: Unremarkable. XR/XR chest 1V portable [id number] IMPRESSION: No acute findings.
--- NOTE | 2023-05-22 11:08 | CT_ITS ---
WS: [id number] Examination: CT angio headneck* [id number] Reason for Exam: neck/head pain no neurologic symptoms. Date: May 22, 2023 Comparison: None. DLP: 1134.[address] scans at [facility] use at least one of these dose optimization techniques: automated e xposure control; mA and/or kV adjustment per patient size (includes targeted exams where dose is matc hed to clinical indication); or iterative reconstruction. Findings: The ventricles and sulci are within normal limits. There is no midline shift. There is no hydrocephal us. There is no intracranial hemorrhage or hematoma. There is a septum cavum vergae. The paranasal sinuses appear well aerated. The thoracic arch is well maintained. There is some streak artifact from contrast within the innomina te vein which obscures portions of the great vessel origins.. The visualized portion of the brachial cephalic artery and the proximal subclavian arteries. Maintained. The visualized common carotid arter ies are maintained. The internal carotid arteries are maintained to and through the skull base. The vertebral arteries are well opacified appear and widely patent as is the basilar artery. The anterior cerebral arteries are unremarkable. The middle cerebral vessels are well maintained. The posterior cerebral arteries are maintained. There is no wedging or subluxation of the cervical spine. 4There is diffuse multilevel degenerative d isc disease noted however. Impression: There is no large vessel occlusion. The cervical carotid and vertebral arteries are maintained. The [place] of [place] vessels are maintain ed. Diffuse prominent degenerative changes of the cervical spine are noted.
--- NOTE | 2023-05-22 11:09 | ECG_ITS ---
[facility] Test Date: 2023-05-22 Pat Name: Mikhail Do Department: Room: Gender: Male Building Admin: : 1965 Requested By: Amparo Felix Order Number: [id number] Leslie MD: Jackson Heard M.D. Measurements Intervals [place] Rate: 69 P: 26 [place]: 207 QRS: -22 QRSD: 102 T: 7 QT: 375 QTc: 404 Interpretive Statements SINUS RHYTHM BORDERLINE LEFT AXIS DEVIATION [QRS AXIS < -20] Compared to ECG 08/23/2020 11:40:44 Intraventricular conduction delay no longer present Electronically Signed On 05-22-2023 16:27:36 CDT by Jackson Heard M.D. [id number]
--- NOTE | 2023-05-22 11:10 | ED_ITS ---
HPI - Neck Pain/Injury 2 General: Chief Complaint: Neck Pain/Injury Stated Complaint: Chest, Neck, And head pain Time Seen by Provider: 05/22/23 10:58 Source: patient Mode of arrival: ambulatory Limitations: no limitations History of Present Illness: 58-year-old male has history of extensiv e clots he states that he got admitted last week to [place] they had taken his IVC filter out because it had a little clot burden he had also had a PE and a DVT had been off of his Eliquis and they restarted his Eliquis. He stated his heart was good he said though that since being discharged been having some right-sided neck pain with a slight cough. He states he feels like the pain starts in the neck and goes to his head and he is worried about a clot in his neck. Denies any severe pains. Has no strokelike symptoms. Associated symptoms: Denies headache(s) or nausea Review of Systems 2 Const: Denies: fever(s), chills, body aches or change in appetite ENMT: Denies: throat pain or dental pain Card: Denies: chest pain Resp: Reports: non-productive cough; Denies: dyspnea GI: Denies: abdominal pain, nausea, vomiting or diarrhea Musc: Reports: neck pain; Denies: back pain Skin/Breast: Denies: rash Neuro: Denies: headache(s) PFSH ED 2 PFSH: Medical History DVT (deep venous thrombosis) Tick fever Anxiety Heterozygous factor V Leiden mutation Difficulty urinating Hx pulmonary embolism Diabetes mellitus Chronic prostatitis BPH loc w/o ur obs/LUTS Positive cardiac stress test Surgical History History of inferior vena caval filter placement History of total right knee replacement (01/18/23) S/P colon resection S/P cholecystectomy S/P appendectomy History of surgery on arm (2007) S/P IVC filter Family History Father , 67 y/o Congestive heart failure (CHF) Myocardial infarct Brother Bleeding disorder Factor V (his 2 daughters have this as well) Mother Stroke Grandmother Abdominal aortic aneurysm (AAA) Social History Smoking and tobacco/nicotine status: former use of tobacco/nicotine Quit status (tobacco/nicotine): has quit using Year quit tobacco: 2003 Former quit date comment: tobacco use 15 years total Alcohol intake: current Alcohol intake frequency: few times a month Substance/Drug Use: never Marital status: Current occupational status: employed Physical Exam 2 Const: COMMON NORMALS: no acute distress, patient oriented x3 and healthy appearing HENMT: COMMON NORMALS: normocephalic and atraumatic HEAD & SCALP: n ormocephalic and atraumatic Eye: COMMON NORMALS: Equal, round and reactive pupils present PUPIL: Yes Equal, round and reactive pupils present Neck/C-Spine: COMMON NORMALS: full ROM and supple GENERAL: No Meningeal signs present Chest: COMMONS NORMALS: normal inspection of the chest and normal palpation of entire chest wall Resp: COMMON NORMALS: normal respiratory effort, No retractions, No use of accessory muscles and clear to auscultation bilaterally AUSCULTATION: clear to auscultation bilaterally Cardio: COMMON NORMALS: regular rate, regular rhythm and No murmurs present (Cardio) RATE: regular rate RHYTHM: regular rhythm Extremity: COMMON NORMALS: normal to inspection and full ROM Neuro: COMMON NORMALS: patient oriented x3, moves all extremities and no focal motor deficits Psych: COMMON NORMALS: mental status grossly normal, Normal thought process present and cooperative THOUGHT PROCESS: Normal thought process present Skin: COMMON NORMALS: no rashes or lesions noted and no wounds GENERAL SKIN EXAM: no rashes or lesions noted Course 2 Vital Signs: Vital signs: Vital Signs Temperature 98.4 F 05/22/23 10:30 Pulse Rate 64 05/22/23 13:02 Respiratory Rate 16 05/22/23 10:30 Blood Pressure 131/87 05/22/23 11:01 Pulse Oximetry 94 05/22/23 13:02 Oxygen Delivery Me thod Room Air 05/22/23 13:02 MDM - Neck Pain/Injury Medical Decision Making Patient presents for neck pain CTA showed no blood clots he is well-appearing here blood work and x-ray are normal he is stable for discharge follow-up with PCP and return if worsening. Medical Records I reviewed the patient's medical records. Lab Data I reviewed the patient's lab results. 05/22/23 11:25 05/22/23 11:25 Radiology Impressions Chest X-Ray 05/22/23 11:08 IMPRESSION: No acute findings. Laboratory Results WBC 6.50 10^3/uL (3.29-11.43) 05/22/23 11:25 RBC 4.29 10^6/uL (3.85-5.65) 05/22/23 11:25 Hgb 13.00 g/dL (11.27-16.99) 05/22/23 11:25 Hct 40.1 % (37-53) 05/22/23 11:25 MCV 93.5 fl (82-101) 05/22/23 11:25 MCH 30.3 pg (27-33) 05/22/23 11:25 MCHC 32.4 g/dL (30-55) 05/22/23 11:25 RDW 12.7 % (12.1-15.1) 05/22/23 11:25 Plt Count 402 10^3/cmm (157-399) H 05/22/23 11:25 MPV 10.5 fL (7.4-10.4) H 05/22/23 11:25 Neut % (Auto) 67.8 % 05/22/23 11:25 Lymph % (Auto) 19.2 % 05/22/23 11:25 [place] % (Auto) 8.0 % 05/22/23 11:25 Eos % (Auto) 3.1 % 05/22/23 11:25 Baso % (Auto) 0.8 % 05/22/23 11:25 Neut # (Auto) 4.41 10^3/uL (1.8-7.7) 05/22/23 11:25 Lymph # (Auto) 1.3 10^3/uL (0.8-4.8) 05/22/23 11:25 [place] # (Auto) 0.5 10^3/uL (0.2-0.9) 05/22/23 11:25 Eos # (Auto) 0.2 10^3/uL (0.0-0.8) 05/22/23 11:25 Baso # (Auto) 0.1 10^3/uL (0.0-0.1) 05/22/23 11:25 Nucleated RBC % (auto) 0 % 05/22/23 11:25 Nucleated RBCs # 0.0 /100WBC 05/22/23 11:25 PT 15.70 SECONDS (12.1-14.9) H 05/22/23 11:25 INR 1.21 (0.8-1.2) H 05/22/23 11:25 Sodium 140 mmol/L (136-145) 05/22/23 11:25 Potassium 4.9 mmol/L (3.5-5.1) 05/22/23 11:25 Chloride 100 mmol/L (98-107) 05/22/23 11:25 Carbon Dioxide 28 mmol/L (22-29) 05/22/23 11:25 Anion Gap 16.9 (5-19) 05/22/23 11:25 BUN 14 mg/dL (6-20) 05/22/23 11:25 Creatinine 1.1 mg/dL (0.7-1.2) 05/22/23 11:25 GFR Calculation 68.8 mL/min (90-130) L 05/22/23 11:25 Glucose 94 mg/dL (65-115) 05/22/23 11:25 Calculated Osmolality 290 mOsm/kg (285-295) 05/22/23 11:25 Calcium 9.4 mg/dL (8.5-10.5) 05/22/23 11:25 Total Bilirubin 0.5 mg/dL (0.15-1.2) 05/22/23 11:25 AST 25 U/L (0-40) 05/22/23 11:25 ALT 36 U/L (0-41) 05/22/23 11:25 Alkaline Phosphatase 110 U/L (40-130) 05/22/23 11:25 Total Protein 7.7 g/dL (6.6-8.7) 05/22/23 11:25 Albumin 4.2 g/dL (3.5-5.2) 05/22/23 11:25 Globulin 3.5 g/dL (1.3-4.6) 05/22/23 11:25 All radiology interpretation(s) finalized by discharge EKG Data EKG 1: I personally reviewed and interpreted this EKG as follows: EKG interpretation date: 05/22/23 EKG interpretation time: 11:24 Interpretation: nsr hr [address] or t wave abnormalities qrs 102 qtc 395 Discharge Plan Discharge Patient Disposition: Home Clinical Impression: Neck pain Condition: Stable Prescriptions: No Action multivitamin Tablet 1 tab PO DAILY melatonin 10 mg capsule 10 mg PO BEDTIME PRN (Reason: Sleep) allopurinol 300 mg tablet 300 mg PO DAILY Qty: 90 2RF Eliquis 5 mg tablet 5 mg PO BID ondansetron 4 mg tablet,disintegrating 4 mg PO Q8H PRN (Reason: nausea and vomiting) Qty: 30 0RF Eliquis DVT-PE Treat 30D Start 5 mg (74 tabs) tablets,dose pack See Rx Instructions PO PER PKG DIR Qty: 74 0RF Rx Instructions: PO PER PKG DIR sertraline 50 mg tablet 50 mg PO DAILY Qty: 30 3RF tamsulosin 0.4 mg capsule 0.4 mg PO DAILY Qty: 30 6RF Aspir-81 81 mg Tablet,Delayed Release (Dr/Ec) 81 mg PO DAILY oxycodone 5 mg tablet 5 mg PO TID PRN (Reason: Pain (Scale Score 4-6)) Discharge Orders: Discharge ED (Routine); Ordered 05/22/23 Ordered By: Amparo Felix Referrals: Andres Stoll MD [Primary Care Provider] - 1-3 days Discharge Diet: Advance as tolerated Discharge Activity: Resume usual activity Patient Instructions: Neck Pain (ED) Coding Level of Care Code ED Entry Operator for Rosa Underwood
[2023-05-22 11:53] LABS: Basophils # 0.1 10^3/uL (0.0-0.1); Basophils % 0.8 %; Eosinophils # 0.2 10^3/uL (0.0-0.8); Eosinophils % 3.1 %; Hematocrit 40.1 % (37-53); Lymphocytes # 1.3 10^3/uL (0.8-4.8); Lymphocytes % 19.2 %; Mean Corpuscular HGB Conc 32.4 g/dL (30-55); Mean Corpuscular Hemoglobin 30.3 pg (27-33); Mean Corpuscular Volume 93.5 fl (82-101); Mean Platelet Volume 10.5 fL (7.4-10.4); Monocytes # 0.5 10^3/uL (0.2-0.9); Neutrophils # 4.41 10^3/uL (1.8-7.7); Neutrophils % 67.8 %; Nucleated Red Blood Cells % 0 %; Platelet Count 402 10^3/cmm (157-399); Red Blood Count 4.29 10^6/uL (3.85-5.65); Red Cell Distribution Width 12.7 % (12.1-15.1)
[2023-05-22 12:08] LABS: INR 1.21 (0.8-1.2)
[2023-05-22] MEDS: iohexol 350 mg/mL 500 mL Btl (per mL) IV (12:11)
[2023-05-22 12:14] LABS: Alanine Aminotransferase 36 U/L (0-41); Albumin Level 4.2 g/dL (3.5-5.2); Alkaline Phosphatase 110 U/L (40-130); Anion Gap 16.9 (5-19); Aspartate Amino Transferase 25 U/L (0-40); Blood Urea Nitrogen 14 mg/dL (6-20); Calcium 9.4 mg/dL (8.5-10.5); Carbon Dioxide 28 mmol/L (22-29); Chloride 100 mmol/L (98-107); Creatinine Clr Calc Pharmacy 86.6757; Globulin 3.5 g/dL (1.3-4.6); Glomerular Filtration Rate 68.8 mL/min (90-130); Glucose 94 mg/dL (65-115); Osmolality Calculated 290 mOsm/kg (285-295); Potassium 4.9 mmol/L (3.5-5.1); Sodium 140 mmol/L (136-145); Total Bilirubin 0.5 mg/dL (0.15-1.2); Total Protein 7.7 g/dL (6.6-8.7)
[2023-05-22 13:02] VITALS: PULSE 64; O2SAT 94
== END 2023-05-22 14:29 | disposition home or self-care (01) ==
PROVIDERS: Emergency Provider Emergency Medicine; PCP Family Medicine
DX: M54.2 Cervicalgia (principal); Z79.01 Long term (current) use of anticoagulants; Z79.82 Long term (current) use of aspirin; Z87.891 Personal history of nicotine dependence; E11.9 Type 2 diabetes mellitus without complications
CPT/HCPCS: 36415; 70496; 70498; 71045; 80053; 85025; 85610; 93005; 99285; Q9967

== ENCOUNTER → 2023-06-13 15:14 | Outpatient (BNVA) | payer MEDICARE, OTHER, SELFPAY | PROVIDERS: PCP Family Medicine; Visit Provider Physician Assistant | DX: M16.11 Unilateral primary osteoarthritis, right hip; S73.191A Other sprain of right hip, initial encounter; X58.XXXA Exposure to other specified factors, initial encounter | CPT/HCPCS: 99213 ==

== ENCOUNTER → 2023-06-28 10:19 | Outpatient (BNVA) | payer MEDICARE, OTHER, SELFPAY | PROVIDERS: PCP Family Medicine; Visit Provider Family Medicine | DX: E53.8 Deficiency of other specified B group vitamins (principal); Z79.01 Long term (current) use of anticoagulants; Z51.81 Encounter for therapeutic drug level monitoring; M25.50 Pain in unspecified joint; R53.81 Other malaise; R53.83 Other fatigue; E55.9 Vitamin D deficiency, unspecified | CPT/HCPCS: 82306; 82607; 83540; 83550; 84439; 84443; 85025; 86618; 86666; 86757 ==

== ENCOUNTER → 2023-06-30 12:34 | Outpatient (BNVA) | payer MEDICARE, OTHER, SELFPAY | PROVIDERS: PCP Family Medicine; Visit Provider Family Medicine | DX: L82.1 Other seborrheic keratosis (principal); N41.1 Chronic prostatitis; Z79.01 Long term (current) use of anticoagulants; Z51.81 Encounter for therapeutic drug level monitoring; M25.551 Pain in right hip; M16.11 Unilateral primary osteoarthritis, right hip; R53.81 Other malaise; R53.83 Other fatigue | CPT/HCPCS: 86618; 86666; 86757 ==

== ENCOUNTER → 2023-08-03 13:54 | Outpatient (BNVA) | payer MEDICARE, OTHER, SELFPAY | PROVIDERS: PCP Family Medicine; Visit Provider Family Medicine | DX: R19.7 Diarrhea, unspecified (principal) | CPT/HCPCS: 87045; 87177; 87209; 87427; 87449; 87493 ==

== ENCOUNTER 2023-08-14 12:43 | Outpatient (CLI) | payer MEDICARE, OTHER, SELFPAY ==
--- NOTE | 2023-08-14 12:47 | XR_ITS ---
WS: [id number] Exam: XR chest 2V* [id number] Date/Time of Exam: 08/14/2023 12:49 PM Reason For Exam: Dyspnea, cough Comparison 05/22/2023. Findings: The lungs are clear and fully expanded. Costophrenic angles are sharp. No infiltrates. Bronchovascula r relief appears normal. Cardiac silhouette is unremarkable. Bony elements are intact. XR/XR chest 2V* [id number] IMPRESSION: Unremarkable chest radiograph.
== END 2023-08-14 12:44 | disposition home or self-care (01) ==
LOC: RAD 12:45
PROVIDERS: PCP Family Medicine; Visit Provider Family Medicine
DX: R05.9 Cough, unspecified (principal)
CPT/HCPCS: 71046

== ENCOUNTER → 2023-10-10 09:25 | Outpatient (BNVA) | payer MEDICARE, OTHER, SELFPAY | PROVIDERS: PCP Family Medicine; Visit Provider Family Medicine | DX: Z51.81 Encounter for therapeutic drug level monitoring (principal); R73.03 Prediabetes; R05.3 Chronic cough | CPT/HCPCS: 80053; 83036; 85025 ==

== ENCOUNTER → 2023-10-12 11:09 | Outpatient (BNVA) | payer MEDICARE, OTHER, SELFPAY | PROVIDERS: PCP Family Medicine; Visit Provider Podiatrist Foot & Ankle Surgery | DX: M25.572 Pain in left ankle and joints of left foot (principal); M79.672 Pain in left foot; M25.372 Other instability, left ankle; M76.72 Peroneal tendinitis, left leg | CPT/HCPCS: 73610; 73620; 99203 ==

== ENCOUNTER 2023-10-16 12:56 | Outpatient (RCR) | payer MEDICARE, OTHER, SELFPAY | END 2023-10-21 18:00 | disposition home or self-care (01) | LOC: SPT 12:56 | PROVIDERS: PCP Family Medicine; Visit Provider Family Medicine | DX: Z47.1 Aftercare following joint replacement surgery (principal); Z96.641 Presence of right artificial hip joint; Z96.651 Presence of right artificial knee joint | CPT/HCPCS: 97110; 97161 ==

== ENCOUNTER 2023-10-19 15:35 | Emergency (ER) | payer MEDICARE, OTHER, SELFPAY ==
[2023-10-19 15:42] VITALS: BP 126/83; PULSE 103; RESP 16; TEMP 36.8; O2SAT 95; BMI 34.2
--- NOTE | 2023-10-19 16:05 | W.ED.RECABL ---
HPI - Recheck/Abnormal Lab/Rx General: Chief Complaint: Recheck/Abnormal Lab/Rx Stated Complaint: blood clots in left leg Time Seen by Provider: 10/19/23 15:51 History of Present Illness: 58-year-old male with a history of factor V deficiency who is failed anticoagulation in the past per his history. He is currently on Eliquis had venous duplex done earlier today and showed extension of clots. In the past his clot has become so extensive and extended into the inferior vena cava and actually required the removal of a IVC filter. He is complaining of some mild chest discomfort and shortness of breath as well he was sent here by his primary care doctor. Patient is complaining of abdominal discomfort and flulike symptoms. He states anytime to eat he feels as if he gets early satiety cramping. Related Data Home Medications Medication Instructions Recorded Confirmed multivitamin 1 tab PO DAILY 05/21/20 10/19/23 melatonin 10 mg capsule 10 mg PO BEDTIME PRN Sleep 04/04/23 10/19/23 aspirin 81 mg tablet,delayed 81 mg PO DAILY 05/22/23 10/19/23 release Previous Rx's Medication Instructions Recorded allopurinol 300 mg tablet 300 mg PO DAILY #90 tabs 09/22/22 tamsulosin 0.4 mg capsule 0.4 mg PO DAILY #30 caps 03/02/23 pantoprazole 40 mg tablet,delayed 40 mg PO DAILY #30 tabs 06/28/23 release levothyroxine 50 mcg tablet 50 mcg PO DAILY #30 tabs 07/17/23 albuterol sulfate 90 mcg/actuation 2 puff inhalation Q6H PRN 08/15/23 aerosol inhaler (ProAir HFA) shortness of breath or wheezing #8.5 grams furosemide 40 mg tablet 40 mg PO DAILY #30 tabs 09/06/23 potassium chloride 10 mEq 10 meq PO DAILY #30 tabs 09/06/23 tablet,extended release (Klor-Con) sertraline 50 mg tablet 50 mg PO DAILY #30 tabs 09/25/23 Sole Supports #1 ea 10/12/23 enoxaparin 100 mg/mL subcutaneous 110 mg (1.1 mL) SUBCUT Q12H #10 mL 10/19/23 syringe (Lovenox) Allergies Allergy/AdvReac Type Severity Reaction Status Date / Time haloperidol [From Haldol] Allergy oral Verified 10/12/23 11:24 swelling [id number] Reductase Allergy short of Verified 10/12/23 11:24 Inhibitor breath [Ckupotz-Cnf-Ofx Reductase Inhibitor] Review of Systems Const: Reports: fatigue and malaise; Denies: fever(s) or chills Card: Denies: chest pain Resp: Denies: dyspnea GI: Reports: abdominal pain and nausea; Denies: vomiting : Denies: dysuria, urinary frequency or urinary urgency Musc: Denies: neck pain or back pain Skin/Breast: Denies: rash PFSH ED PFSH: Medical History DVT (deep venous thrombosis) 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 - 04/2023 Tick fever Anxiety Heterozygous factor V Leiden mutation Difficulty urinating Hx pulmonary embolism Diabetes mellitus Chronic prostatitis BPH loc w/o ur obs/LUTS Positive cardiac stress test Surgical History History of hip replacement 08/2023 - [facility] History of inferior vena caval filter placement History of total right knee replacement (01/18/23) S/P colon resection S/P cholecystectomy S/P appendectomy History of surgery on arm (2007) S/P IVC filter Removed 04/2023 in [place] Family History Father , 67 y/o Congestive heart failure (CHF) Myocardial infarct Brother Bleeding disorder Factor V (his 2 daughters have this as well) Mother Stroke Grandmother Abdominal aortic aneurysm (AAA) Social History Smoking and tobacco/nicotine status: never used tobacco/nicotine Quit status (tobacco/nicotine): has quit using Year quit tobacco: 2003 Former quit date comment: tobacco use 15 years total Alcohol intake: current Alcohol intake frequency: few times a month Substance/Drug Use: never Marital status: Current occupational status: employed Physical Exam Const: COMMON NORMALS: no acute distress GENERAL APPEARANCE: cooperative and comfortable ORIENTATION/CONSCIOUSNESS: Yes awake, Yes oriented to person, Yes oriented to place and Yes oriented to time HENMT: COMMON NORMALS: normocephalic, atraumatic and hearing grossly normal bilaterally HEAD & SCALP: normocephalic and atraumatic Resp: COMMON NORMALS: normal respiratory effort, No retractions, No use of accessory muscles and clear to auscultation bilaterally AUSCULTATION: clear to auscultation bilaterally Cardio: COMMON NORMALS: regular rate, regular rhythm and No murmurs present (Cardio) RATE: regular rate RHYTHM: regular rhythm GI: COMMON NORMALS: Soft to palpation and No hepatosplenomegaly present AUSCULTATION: Yes normoactive bowel sounds PALPATION: Yes Soft to palpation, No Tenderness to palpation present (GI), No Guarding due to palpation present (GI) and Yes No hepatosplenomegaly present Extremity: COMMON NORMALS: normal to inspection, capillary refill normal and no calf tenderness GENERAL: Yes edema (Trace lower extremity) Neuro: SENSORIUM/ORIENTATION: Yes oriented to person, Yes oriented to place and Yes oriented to time Skin: COMMON NORMALS: no rashes or lesions noted GENERAL SKIN EXAM: no rashes or lesions noted Course Vital Signs: Vital signs: Vital Signs Temperature 98.2 F 10/19/23 15:42 Pulse Rate 103 H 10/19/23 15:42 Respiratory Rate 16 10/19/23 15:42 Blood Pressure 126/83 10/19/23 15:42 Pulse Oximetry 95 10/19/23 15:42 Oxygen Delivery Me thod Room Air 10/19/23 15:42 MDM - Recheck/Abnormal Lab/Rx Medical Decision Making Dr. Stoll had called ahead regarding this patient please having some shortness of breath. He is also having flulike symptoms he is very concerned about possibly having a repeat EGD. He has a history of factor V Leiden deficiency and has had significant difficulty with his propensity for DVTs at 1 time he is on clotting most of his inferior vena cava and having to have a inferior vena cava filter removed. He is once again failed Eliquis he recently had a long drive and despite stopping frequently was shown earlier today by the facility to have a worsening DVT. Dr. Stoll has sent him over because of his known history of extensive clots. No PE seen on the CT and no clotting was noted in the inferior vena cava. Because he seems to have failed aspirin and Eliquis will have him hold the Eliquis and switch him to Lovenox he has been on that in the past. Encouraged him to follow-up with his primary care doctor for consideration referral to hematology for further evaluation and consideration of other potential treatment options. If patient has any worsening symptoms he should return to the emergency room. Lab Data 10/19/23 16:14 10/19/23 16:14 Radiology Impressions Chest/Abdomen/Pelvis CT 10/19/23 16:06 IMPRESSION: 1. No evidence of pulmonary embolism or other acute abnormality in the chest. 2. A 1.9 cm right hilar lymph node is nonspecific, likely reactive. IMPRESSION: 1. No acute abnormality in the abdomen or pelvis. 2. Moderate diffuse hepatic steatosis. 3. Mild prostatomegaly Laboratory Results WBC 5.86 10^3/uL (3.29-11.43) 10/19/23 16:14 RBC 4.60 10^6/uL (3.85-5.65) 10/19/23 16:14 Hgb 13.80 g/dL (11.27-16.99) 10/19/23 16:14 Hct 42.5 % (37-53) 10/19/23 16:14 MCV 92.4 fl (82-101) 10/19/23 16:14 MCH 30.0 pg (27-33) 10/19/23 16:14 MCHC 32.5 g/dL (30-55) 10/19/23 16:14 RDW 13.8 % (12.1-15.1) 10/19/23 16:14 Plt Count 255 10^3/cmm (157-399) 10/19/23 16:14 MPV 10.7 fL (7.4-10.4) H 10/19/23 16:14 Neut % (Auto) 53.0 % 10/19/23 16:14 Lymph % (Auto) 33.3 % 10/19/23 16:14 [place] % (Auto) 10.1 % 10/19/23 16:14 Eos % (Auto) 2.9 % 10/19/23 16:14 Baso % (Auto) 0.5 % 10/19/23 16:14 Neut # (Auto) 3.11 10^3/uL (1.8-7.7) 10/19/23 16:14 Lymph # (Auto) 2.0 10^3/uL (0.8-4.8) 10/19/23 16:14 [place] # (Auto) 0.6 10^3/uL (0.2-0.9) 10/19/23 16:14 Eos # (Auto) 0.2 10^3/uL (0.0-0.8) 10/19/23 16:14 Baso # (Auto) 0.0 10^3/uL (0.0-0.1) 10/19/23 16:14 Nucleated RBC % (auto) 0 % 10/19/23 16:14 Nucleated RBCs # 0.0 /100WBC 10/19/23 16:14 PT 14.10 SECONDS (12.1-14.9) 10/19/23 16:14 INR 1.06 (0.8-1.2) 10/19/23 16:14 Sodium 138 mmol/L (136-145) 10/19/23 16:14 Potassium 3.2 mmol/L (3.5-5.1) L 10/19/23 16:14 Chloride 98 mmol/L (98-107) 10/19/23 16:14 Carbon Dioxide 25 mmol/L (22-29) 10/19/23 16:14 Anion Gap 18.2 (5-19) 10/19/23 16:14 BUN 11 mg/dL (6-20) 10/19/23 16:14 Creatinine 0.9 mg/dL (0.7-1.2) 10/19/23 16:14 GFR Calculation 86.7 mL/min (90-130) L 10/19/23 16:14 Glucose 136 mg/dL (65-115) H 10/19/23 16:14 Calculated Osmolality 287 mOsm/kg (285-295) 10/19/23 16:14 Calcium 9.1 mg/dL (8.5-10.5) 10/19/23 16:14 Total Bilirubin 0.6 mg/dL (0.15-1.2) 10/19/23 16:14 AST 31 U/L (0-40) 10/19/23 16:14 ALT 53 U/L (0-41) H 10/19/23 16:14 Alkaline Phosphatase 130 U/L (40-130) 10/19/23 16:14 Total Protein 7.2 g/dL (6.6-8.7) 10/19/23 16:14 Albumin 4.3 g/dL (3.5-5.2) 10/19/23 16:14 Globulin 2.9 g/dL (1.3-4.6) 10/19/23 16:14 All radiology interpretation(s) finalized by discharge Discharge Plan Discharge Patient Disposition: Home Clinical Impression: DVT (deep venous thrombosis), Hx pulmonary embolism, Heterozygous factor V Leiden mutation Condition: Stable Prescriptions: New Lovenox 100 mg/mL syringe 110 mg SUBCUT Q12H Qty: 10 0RF Discontinued Eliquis 5 mg tablet 5 mg PO BID Qty: 60 6RF Rx Instructions: Start after you finish your starting dose pack No Action multivitamin Tablet 1 tab PO DAILY melatonin 10 mg capsule 10 mg PO BEDTIME PRN (Reason: Sleep) (DME) Sole Supports See Rx Instructions .Route .MEDSUPPLY Qty: 1 0RF Rx Instructions: As directed allopurinol 300 mg tablet 300 mg PO DAILY Qty: 90 2RF pantoprazole 40 mg tablet,delayed release (DR/EC) 40 mg PO DAILY Qty: 30 3RF furosemide 40 mg tablet 40 mg PO DAILY Qty: 30 3RF potassium chloride [Klor-Con 10] 10 mEq tablet extended release 10 meq PO DAILY Qty: 30 3RF albuterol sulfate [ProAir HFA] 90 mcg/actuation HFA aerosol inhaler 2 puff inhalation Q6H PRN (Reason: shortness of breath or wheezing) Qty: 8.5 6RF tamsulosin 0.4 mg capsule 0.4 mg PO DAILY Qty: 30 6RF levothyroxine 50 mcg tablet 50 mcg PO DAILY Qty: 30 2RF sertraline 50 mg tablet 50 mg PO DAILY Qty: 30 0RF Aspir-81 81 mg Tablet,Delayed Release (Dr/Ec) 81 mg PO DAILY Discharge Orders: Discharge ED (Routine); Ordered 10/19/23 Ordered By: Grady Shelby Referrals: Andres Stoll MD [Primary Care Provider] - Discharge Diet: Usual diet Discharge Activity: Increase activity as tolerated Patient Instructions: Opioid Safety, Pain Management Activity Restrictions/Additional Instructions: Thank you for choosing [facility] for your healthcare needs today. It is very important that you follow up as instructed or that you return to the Emergency Department should you have concerns or if your condition changes or worsens in any way. You were seen today with complaints of a worsening DVT despite being on Eliquis. Given your history of factor V Leiden deficiency would recommend at this time but you switch from Eliquis to Lovenox. Further imaging done today including a CTA of the chest and scan of your abdomen and pelvis did not show any pulmonary emboli or any clots in the inferior vena cava. Follow-up with your primary care doctor to discuss referral for hematology to review other treatment options. Coding Level of Care Code ED Vp Director Of Creative Strategy for Rosa Underwood
--- NOTE | 2023-10-19 16:06 | CTR_ITS ---
PROCEDURE INFORMATION: Exam: CTA Chest With Contrast Exam date and time: 10/19/2023 4:21 PM Age: 58 years old Clinical indication: Condition or disease; Other: Dvt; Prior surgery; Surgery date: 6+ months; Surgery type: Vena cava, appy, gb; Additional info: Failed eliquis worsening dvt TECHNIQUE: Imaging protocol: Computed tomographic angiography of the chest with contrast. Exam focused on the arteries. 3D rendering (Not supervised by radiologist): MIP and/or 3D reconstructed images were created by the technologist. Radiation optimization: All CT scans at this facility use at least one of these dose optimization techniques: automated exposure control; mA and/or kV adjustment per patient size (includes targeted exams where dose is matched to clinical indication); or iterative reconstruction. Contrast material: OMNI 350; Contrast volume: 100 ml; Contrast route: INTRAVENOUS (IV); COMPARISON: CR XR chest 2V* [id number] 08/14/2023 12:50 PM RADIATION DOSE METRICS: Total DLP (mGy-cm): 414 FINDINGS: Pulmonary arteries: No evidence of pulmonary emboli. Adequate contrast bolus Aorta: No aortic aneurysm. No evidence of aortic dissection. Lungs: Unremarkable. No consolidation. No masses. Pleural spaces: Unremarkable. No pneumothorax. No pleural effusion. Heart: Upper limit normal cardiac silhouette size. Lymph nodes: Mildly enlarged right hilar adenopathy up to 1.9 cm, likely reactive. Bones/joints: Mild multilevel thoracic spondylosis. Xkky-hj-sromsiak glenohumeral arthrosis, left greater than right. No acute fracture. Soft tissues: Unremarkable. PROCEDURE INFORMATION: Exam: CT Abdomen And Pelvis With Contrast Exam date and time: 10/19/2023 4:21 PM Age: 58 years old Clinical indication: Condition or disease; Other: Dvt; Prior surgery; Surgery date: 6+ months; Surgery type: Vena cava, appy, gb; Additional info: Failed eliquis worsening dvt TECHNIQUE: Imaging protocol: Computed tomography of the abdomen and pelvis with contrast. Radiation optimization: All CT scans at this facility use at least one of these dose optimization techniques: automated exposure control; mA and/or kV adjustment per patient size (includes targeted exams where dose is matched to clinical indication); or iterative reconstruction. Contrast material: OMNI 350; Contrast volume: 100 ml; Contrast route: INTRAVENOUS (IV); COMPARISON: CR XR hip RT 2-3V wo/w pel* [id number] 03/07/2023 3:12 PM RADIATION DOSE METRICS: Total DLP (mGy-cm): 1031 FINDINGS: Liver: Moderate diffuse hepatic steatosis. Gallbladder and biliary ducts: Absent gallbladder. No biliary dilatation. Pancreas: Normal. No ductal dilation. Spleen: Normal. No splenomegaly. Adrenal glands: Normal. No mass. Kidneys and ureters: Normal. No hydronephrosis. Stomach and bowel: Anastomotic sutures of the descending colon/sigmoid junction. Moderate amount of colonic stool. Appendix: Reported appendectomy. Intraperitoneal space: Unremarkable. No free air. No significant fluid collection. Vasculature: IVC is normal in caliber without obvious filling defect no obvious filling defect in the iliac and proximal femoral veins. Lymph nodes: Unremarkable. No enlarged lymph nodes. Urinary bladder: Unremarkable as visualized. Reproductive: Mildly enlarged prostate. Bones/joints: Right hip hemiarthroplasty. Evks-cp-hcuarrxh mid to lower lumbar spondylosis. Soft tissues: Unremarkable. CT/CT angio chest w abd pel w con IMPRESSION: 1. No evidence of pulmonary embolism or other acute abnormality in the chest. 2. A 1.9 cm right hilar lymph node is nonspecific, likely reactive. IMPRESSION: 1. No acute abnormality in the abdomen or pelvis. 2. Moderate diffuse hepatic steatosis. 3. Mild prostatomegaly
[2023-10-19 16:20] LABS: Basophils % 0.5 %; Eosinophils # 0.2 10^3/uL (0.0-0.8); Eosinophils % 2.9 %; Hematocrit 42.5 % (37-53); Lymphocytes % 33.3 %; Mean Corpuscular HGB Conc 32.5 g/dL (30-55); Mean Corpuscular Volume 92.4 fl (82-101); Mean Platelet Volume 10.7 fL (7.4-10.4); Monocytes # 0.6 10^3/uL (0.2-0.9); Monocytes % 10.1 %; Neutrophils # 3.11 10^3/uL (1.8-7.7); Nucleated Red Blood Cells % 0 %; Platelet Count 255 10^3/cmm (157-399); Red Cell Distribution Width 13.8 % (12.1-15.1); White Blood Count 5.86 10^3/uL (3.29-11.43)
[2023-10-19] MEDS: iohexol 350 mg/mL 500 mL Btl (per mL) IV (16:27)
[2023-10-19 16:35] LABS: Alanine Aminotransferase 53 U/L (0-41); Albumin Level 4.3 g/dL (3.5-5.2); Alkaline Phosphatase 130 U/L (40-130); Anion Gap 18.2 (5-19); Aspartate Amino Transferase 31 U/L (0-40); Blood Urea Nitrogen 11 mg/dL (6-20); Calcium 9.1 mg/dL (8.5-10.5); Carbon Dioxide 25 mmol/L (22-29); Chloride 98 mmol/L (98-107); Creatinine Clr Calc Pharmacy 110.2996; Globulin 2.9 g/dL (1.3-4.6); Glomerular Filtration Rate 86.7 mL/min (90-130); Glucose 136 mg/dL (65-115); Osmolality Calculated 287 mOsm/kg (285-295); Potassium 3.2 mmol/L (3.5-5.1); Sodium 138 mmol/L (136-145); Total Bilirubin 0.6 mg/dL (0.15-1.2); Total Protein 7.2 g/dL (6.6-8.7)
[2023-10-19 17:17] LABS: INR 1.06 (0.8-1.2)
--- NOTE | 2023-10-19 17:39 | ECG_ITS ---
[facility] Test Date: 2023-10-19 Pat Name: Mikhail Do Department: Room: Gender: Male Hall Clerk: : 1965 Requested By: Grady Alvarez Order Number: [id number] Leslie MD: Jackson Heard M.D. Measurements Intervals [place] Rate: 65 P: 32 PA: 212 QRS: -21 QRSD: 137 T: 36 QT: 404 QTc: 423 Interpretive Statements SINUS RHYTHM WITH FIRST DEGREE AV BLOCK INTRAVENTRICULAR CONDUCTION DELAY [130+ ms QRS DURATION] SEPTAL MYOCARDIAL INFARCTION , OF INDETERMINATE AGE [40+ ms Q WAVE IN V1/V2] Compared to ECG 05/22/2023 11:24:35 First degree AV block now present Intraventricular conduction delay now present Myocardial infarct finding now present Electronically Signed On 10-20-2023 18:10:37 CDT by Jackson Heard M.D. [id number]
[2023-10-19 17:58] VITALS: BP 151/78; PULSE 76; O2SAT 98
[2023-10-19 17:59] VITALS: BP 151/78; PULSE 76; O2SAT 98
== END 2023-10-19 18:00 | disposition home or self-care (01) ==
PROVIDERS: Emergency Provider Family Medicine; PCP Family Medicine
DX: I82.409 Acute embolism and thrombosis of unspecified deep veins of unspecified lower extremity (principal); Z86.711 Personal history of pulmonary embolism; D68.51 Activated protein C resistance; Z79.82 Long term (current) use of aspirin; Z87.891 Personal history of nicotine dependence; E11.9 Type 2 diabetes mellitus without complications
CPT/HCPCS: 36415; 71275; 74177; 80053; 85025; 85610; 93005; 99285; Q9967

== ENCOUNTER 2023-10-22 06:00 | Outpatient (RCR) | payer MEDICARE, OTHER, SELFPAY | END 2023-11-20 23:59 | disposition home or self-care (01) | LOC: SPT 06:00 | PROVIDERS: PCP Clinical Nurse Specialist Adult Health; Visit Provider Family Medicine | DX: Z47.1 Aftercare following joint replacement surgery (principal); Z96.641 Presence of right artificial hip joint; Z96.651 Presence of right artificial knee joint | CPT/HCPCS: 97110 ==

== ENCOUNTER → 2023-10-30 08:15 | Outpatient (BNVA) | payer MEDICARE, OTHER, SELFPAY | PROVIDERS: PCP Family Medicine; Visit Provider Family Medicine | DX: I48.91 Unspecified atrial fibrillation (principal) | CPT/HCPCS: 85610 ==

== ENCOUNTER 2023-11-02 06:00 | Outpatient (CLI) | payer MEDICARE, OTHER, SELFPAY | END 2023-11-02 06:01 | disposition home or self-care (01) | LOC: RAD 11-06 06:54 | PROVIDERS: PCP Clinical Nurse Specialist Adult Health; Visit Provider Clinical Nurse Specialist Adult Health | DX: I82.432 Acute embolism and thrombosis of left popliteal vein (principal) | CPT/HCPCS: 85610 ==

== ENCOUNTER 2023-11-02 09:07 | Outpatient (CLI) | payer MEDICARE, OTHER, SELFPAY ==
--- NOTE | 2023-11-02 09:16 | USCV_ITS ---
Mikhail Do Age: 58 Gender: M : 1965 Exam Date: 11/02/2023 09:22 Ordering Phys: Teo Bender NP Technologist: VONDA [place]am [place] [facility] [place]: Hx of LLE DVT. LLE Calf pain HISTORY: DVT. Lower extremity pain. PROCEDURES: Venous duplex imaging was performed in only the left lower extremity. The following venous structures were evaluated: common femoral vein, profunda vein, proximal portion of the greater saphenous vein, superficial femoral vein, and the popliteal vein. In addition, the posterior tibial and peroneal trunk were evaluated. Serial compression, augmentation maneuvers, and spectral Doppler flow evaluation were performed. FINDINGS: No evidence of DVT seen in any vessel visualized at this time. CONCLUSIONS No evidence of left lower extremity DVT. Boris Millan MD (Electronically Signed) Final Date: 02 November 2023 14:39 S
== END 2023-11-02 09:08 | disposition home or self-care (01) ==
LOC: RAD 09:10
PROVIDERS: PCP Clinical Nurse Specialist Adult Health; Visit Provider Clinical Nurse Specialist Adult Health
DX: I82.432 Acute embolism and thrombosis of left popliteal vein
CPT/HCPCS: 93971

== ENCOUNTER → 2023-11-06 09:11 | Outpatient (BNVA) | payer MEDICARE, OTHER, SELFPAY | PROVIDERS: PCP Clinical Nurse Specialist Adult Health; Visit Provider Clinical Nurse Specialist Adult Health | DX: I48.91 Unspecified atrial fibrillation (principal) | CPT/HCPCS: 85610 ==

== ENCOUNTER 2023-11-08 12:07 | Outpatient (CLI) | payer MEDICARE, OTHER, SELFPAY | END 2023-11-08 12:08 | disposition home or self-care (01) | LOC: SPT 12:07 | PROVIDERS: PCP Clinical Nurse Specialist Adult Health; Visit Provider Podiatrist Foot & Ankle Surgery | DX: Z46.89 Encounter for fitting and adjustment of other specified devices (principal); M25.572 Pain in left ankle and joints of left foot; M79.672 Pain in left foot; M25.372 Other instability, left ankle; M76.72 Peroneal tendinitis, left leg | CPT/HCPCS: L3030 ==

== ENCOUNTER → 2023-11-09 10:44 | Outpatient (BNVA) | payer MEDICARE, OTHER, SELFPAY | PROVIDERS: PCP Clinical Nurse Specialist Adult Health; Visit Provider Clinical Nurse Specialist Adult Health | DX: I48.91 Unspecified atrial fibrillation (principal) | CPT/HCPCS: 85610 ==

== ENCOUNTER → 2023-11-15 11:41 | Outpatient (BNVA) | payer MEDICARE, OTHER, SELFPAY | PROVIDERS: PCP Clinical Nurse Specialist Adult Health; Visit Provider Family Medicine | DX: I48.91 Unspecified atrial fibrillation (principal) | CPT/HCPCS: 85610 ==

== ENCOUNTER → 2023-11-20 12:04 | Outpatient (BNVA) | payer MEDICARE, OTHER, SELFPAY | PROVIDERS: PCP Clinical Nurse Specialist Adult Health; Visit Provider Clinical Nurse Specialist Adult Health | DX: I48.91 Unspecified atrial fibrillation (principal) | CPT/HCPCS: 85610 ==

== ENCOUNTER → 2023-11-27 10:48 | Outpatient (BNVA) | payer MEDICARE, OTHER, SELFPAY | PROVIDERS: PCP Clinical Nurse Specialist Adult Health; Visit Provider Clinical Nurse Specialist Adult Health | DX: I48.91 Unspecified atrial fibrillation (principal) | CPT/HCPCS: 85610 ==

== ENCOUNTER 2023-11-28 20:00 | Outpatient (CLI) | payer MEDICARE, OTHER, SELFPAY | END 2023-11-28 20:01 | disposition home or self-care (01) | LOC: SLEEP 22:28 | PROVIDERS: PCP Clinical Nurse Specialist Adult Health; Visit Provider Family Medicine | DX: G47.33 Obstructive sleep apnea (adult) (pediatric) (principal); G47.36 Sleep related hypoventilation in conditions classified elsewhere | CPT/HCPCS: 95810 ==

== ENCOUNTER → 2023-12-04 13:13 | Outpatient (BNVA) | payer MEDICARE, OTHER, SELFPAY | PROVIDERS: PCP Clinical Nurse Specialist Adult Health; Visit Provider Clinical Nurse Specialist Adult Health | DX: I48.91 Unspecified atrial fibrillation (principal); I82.432 Acute embolism and thrombosis of left popliteal vein | CPT/HCPCS: 85610 ==

== ENCOUNTER → 2023-12-11 10:00 | Outpatient (BNVA) | payer MEDICARE, OTHER, SELFPAY | PROVIDERS: PCP Clinical Nurse Specialist Adult Health; Visit Provider Clinical Nurse Specialist Adult Health | DX: I48.91 Unspecified atrial fibrillation (principal) | CPT/HCPCS: 85610 ==

== ENCOUNTER → 2023-12-25 07:55 | Outpatient (BNVA) | payer MEDICARE, OTHER, SELFPAY | PROVIDERS: PCP Clinical Nurse Specialist Adult Health; Visit Provider Podiatrist Foot & Ankle Surgery | DX: M25.572 Pain in left ankle and joints of left foot (principal); M79.672 Pain in left foot; M25.372 Other instability, left ankle; M76.72 Peroneal tendinitis, left leg | CPT/HCPCS: 99213 ==

== ENCOUNTER → 2023-12-26 11:27 | Outpatient (BNVA) | payer MEDICARE, OTHER, SELFPAY | PROVIDERS: PCP Clinical Nurse Specialist Adult Health; Visit Provider Family Medicine | DX: I48.91 Unspecified atrial fibrillation (principal) | CPT/HCPCS: 85610 ==

== ENCOUNTER 2024-01-08 14:19 | Outpatient (CLI) | payer MEDICARE, OTHER, SELFPAY ==
--- NOTE | 2024-01-08 14:30 | USCV_ITS ---
Mikhail Do Age: 58 Gender: M : 1965 Exam Date: 01/08/2024 14:26 Ordering Phys: Andres Stoll MD Technologist: USR Exam Location: [facility] – [place] Indication: calf pain HISTORY: History of deep venous thrombosis. Pulmonary embolism. Lower extremity pain. PROCEDURES: Venous duplex imaging was performed in only the left lower extremity. The following venous structures were evaluated: common femoral vein, profunda vein, proximal portion of the greater saphenous vein, superficial femoral vein, and the popliteal vein. In addition, the posterior tibial and peroneal trunk were evaluated. Serial compression, augmentation maneuvers, and spectral Doppler flow evaluation were performed. FINDINGS: No evidence of DVT seen in any vessel visualized at this time. CONCLUSIONS No evidence of left lower extremity DVT. Boris Millan MD (Electronically Signed) Final Date: 08 January 2024 15:55 S
== END 2024-01-08 14:20 | disposition home or self-care (01) ==
PROVIDERS: PCP Family Medicine; Visit Provider Family Medicine
DX: M79.662 Pain in left lower leg (principal)
CPT/HCPCS: 93971

== ENCOUNTER → 2024-01-25 11:13 | Outpatient (BNVA) | payer MEDICARE, OTHER, SELFPAY | PROVIDERS: PCP Family Medicine; Visit Provider Family Medicine | DX: I48.91 Unspecified atrial fibrillation (principal) | CPT/HCPCS: 85610 ==

== ENCOUNTER 2024-02-05 10:38 | Outpatient (CLI) | payer MEDICARE, OTHER, SELFPAY ==
--- NOTE | 2024-02-05 11:15 | US_ITS ---
WS: [id number] SCROTAL ULTRASOUND EXAMINATION CLINICAL INFORMATION: Scrotal pain COMPARISON: None. FINDINGS: TESTES Normal in size and echotexture, without focal lesion. Color Doppler: Normal color Doppler flow pattern. Right testes size: 4.1 cm x 2.9 cm x 2.7 cm. Left testes size: 4.2 cm x 3.2 cm x 2.8 cm. EPIDIDYMIDES Normal in size and echotexture, without focal lesion. Color Doppler: Normal color Doppler flow pattern. Right epididymis size: 0.7 cm x 1.0 cm x 1.0 cm. Left epididymis size: 0.9 cm x 0.9 cm x 1.0 cm. HYDROCELE Small LEFT VARICOCELE None. OTHER FINDINGS None. US/US scrotum [id number] IMPRESSION: 1. Testicles are normal in size and echogenicity. Normal vascularity bilateral ly. 2. Normal epididymis bilaterally. 3. Small LEFT hydrocele.
== END 2024-02-05 10:39 | disposition home or self-care (01) ==
LOC: RAD 10:38
PROVIDERS: PCP Family Medicine; Visit Provider Family Medicine
DX: N43.3 Hydrocele, unspecified (principal); N50.819 Testicular pain, unspecified
CPT/HCPCS: 76870

== ENCOUNTER 2024-02-07 15:39 | Outpatient (CLI) | payer MEDICARE, OTHER, SELFPAY ==
--- NOTE | 2024-02-07 15:45 | USCV_ITS ---
Mikhail Do Age: 58 Gender: M : 1965 Exam Date: 02/07/2024 16:28 Ordering Phys: Andres Stoll MD Technologist: USR Exam Location: [facility] – [place]_ Indication: Left leg pain PROCEDURES: Venous duplex imaging was performed in only the left lower extremity. The following venous structures were evaluated: common femoral vein, profunda vein, proximal portion of the greater saphenous vein, superficial femoral vein, and the popliteal vein. In addition, the posterior tibial and peroneal trunk were evaluated. FINDINGS: No evidence of DVT seen in any vessel visualized at this time. CONCLUSIONS No evidence of left lower extremity DVT. Boris Millan MD (Electronically Signed) Final Date: 07 February 2024 17:01 S
== END 2024-02-07 15:40 | disposition home or self-care (01) ==
PROVIDERS: PCP Family Medicine; Visit Provider Family Medicine
DX: Z86.711 Personal history of pulmonary embolism (principal); R25.2 Cramp and spasm; Z79.01 Long term (current) use of anticoagulants
CPT/HCPCS: 80048; 83735; 85610; 93971

== ENCOUNTER → 2024-03-11 14:41 | Outpatient (BNVA) | payer MEDICARE, OTHER, SELFPAY | PROVIDERS: PCP Family Medicine; Visit Provider Internal Medicine Cardiovascular Disease | DX: R07.9 Chest pain, unspecified (principal) | CPT/HCPCS: 93005 ==

== ENCOUNTER 2024-03-19 09:07 | Outpatient (CLI) | payer MEDICARE, OTHER, SELFPAY ==
--- NOTE | 2024-03-19 09:00 | CT_ITS ---
WS: [id number] CT CALCIUM SCORE REASON FOR VISIT: chest pain; Coronary artery disease risk assessment COMPARISON: None TECHNIQUE: Noncontrast coronary CT in combination with quantitative analysis performed on a separate workstation were used to determine CACS (Agatston score) TOTAL EXAM DOSE: 75.69 mGy.cm ECG GATING: Prospective SCAN RANGE: Pulmonary artery bifurcation to Inferior aspect of heart COMPLICATIONS: None FINDINGS: Technical Quality/Examination Quality: Good Limitaiton: None OVERALL SCORES Total calcium score: 46 Total volume score: 80 mm3 Percentile: 25th-50th% ARTERY SCORES Left main coronary artery: 21 Left anterior descending artery: N/A Left circumflex artery: 0 Right coronary artery: 25 OTHER FINDINGS: Mediastinum: Normal. Thoracic aorta: Normal. Lungs: Normal. Upper Abdomen: Tiny esophageal canal hernia. MINIMAL: 1-10 MILD: 11-100 MODERATE: 101-400 SEVERE:>400 CT/CT heart w calcium score 69096 IMPRESSION: 1. Total calcium score of 46 is between 25th and 50th percentile for males be tween the ages of 55 and 59. 2. Total calcium score of 46 compatible with mild coronary artery disease GRADING OF CORONARY ARTERY DISEASE (BASED ON TOTAL CALCIUM SCORE) NO EVIDENCE OF CAD: 0 calcium score
== END 2024-03-19 09:08 | disposition home or self-care (01) ==
LOC: RAD 09:09
PROVIDERS: PCP Family Medicine; Visit Provider Internal Medicine Cardiovascular Disease
DX: R07.9 Chest pain, unspecified (principal)
CPT/HCPCS: 75571

== ENCOUNTER 2024-03-26 20:00 | Outpatient (CLI) | payer MEDICARE, OTHER, SELFPAY | END 2024-03-26 20:01 | disposition home or self-care (01) | LOC: SLEEP 23:25 | PROVIDERS: PCP Family Medicine; Visit Provider Family Medicine | DX: G47.33 Obstructive sleep apnea (adult) (pediatric) (principal) | CPT/HCPCS: 95811 ==

== ENCOUNTER 2024-04-02 06:55 | Outpatient (CLI) | payer MEDICARE, OTHER, SELFPAY ==
--- NOTE | 2024-04-02 07:00 | USCV_ITS ---
Mikhail mrianda Age: 58 Gender: M : 1965 Exam Date: 04/02/2024 07:05 Ordering Phys: Gene Parker MD ([email or web address]) Technologist: [place] [facility] [place]: hx of pe chest pain BP: 130 / 75 HR: 62 Rhythm: Sinus Technical Quality: Adequate MEASUREMENTS (Male / Female) Normal Values 2D ECHO LV Diastolic Diameter PLAX 4.6 cm 4.2 - 5.9 / 3.9 - 5.3 cm IVS Diastolic Thickness 1.4 cm 0.6 - 1.0 / 0.6 - 0.9 cm IVS Systolic Thickness 1.5 cm LVPW Diastolic Thickness 1.4 cm 0.6 - 1.0 / 0.6 - 0.9 cm LVPW Systolic Thickness 1.9 cm LVOT Diameter 2.2 cm LV Ejection Fraction 2D Teich 76.0 % LV Ejection Fraction MOD 4C 57.6 % LV Ejection Fraction MOD 2C 58.3 % LV Ejection Fraction 2C AL 59.6 % LA Diameter 3.2 cm RA Systolic Volume 4C AL 37.6 ml RA Systolic Volume 4C MOD 36.0 ml LA Sys Volume AL 46.0 cm cubed LA Sys Volume Index AL 19.5 cm cubed/m squared Aorta at Sinotubular Diameter 3.5 cm M-MODE LA Ao Ratio MM 1.0 AV Cusp Separation MM 2.5 cm DOPPLER AV Peak Velocity 141.0 cm/s LVOT Peak Velocity 100.0 cm/s AV Area Cont Eq vti 3.1 cm squared AV Area Cont Eq pk 2.6 cm squared MV Peak Velocity 81.0 cm/s MV Area PHT 3.4 cm squared Mitral E to A Ratio 1.3 TV Peak Velocity 181.0 cm/s TR Peak Velocity 202.0 cm/s TR Peak Gradient 16.3 mmHg TV Peak E Velocity 93.0 cm/s PV Peak Velocity 97.7 cm/s FINDINGS Left Ventricle Normal left ventricular size, systolic function and wall thickness, with no regional wall motion abnormalities. Left ventricular ejection fraction is estimated at 60 %. Normal diastolic function. Right Ventricle The right ventricle is normal in size and function. Right Atrium The right atrium is normal in size. Left Atrium The left atrium is normal in size. Mitral Valve Structurally normal mitral valve without significant stenosis or prolapse. There is no mitral regurgitation. Aortic Valve Structurally normal aortic valve without significant sclerosis or stenosis. There is no aortic regurgitation. Tricuspid Valve Structurally normal tricuspid valve without significant stenosis or regurgitation. Pulmonary artery systolic pressure is normal. Pulmonic Valve Structurally normal pulmonic valve without significant stenosis. There is no pulmonic regurgitation. Pericardium Normal pericardium without effusion. Aorta Normal ascending aorta dimension. IVC The inferior vena cava appears normal. CONCLUSIONS Normal left ventricular size, systolic function and wall thickness, with no regional wall motion abnormalities. Left ventricular ejection fraction is estimated at 60 %. Normal diastolic function. No significant chamber abnormalities. Right atrial pressure is around 5 mm of mercury. Gene Parker MD (Electronically Signed) Final Date: 18 April 2024 21:28 S
== END 2024-04-02 06:56 | disposition home or self-care (01) ==
PROVIDERS: PCP Family Medicine; Visit Provider Internal Medicine Cardiovascular Disease
DX: R06.02 Shortness of breath (principal); Z86.711 Personal history of pulmonary embolism
CPT/HCPCS: 93306

== ENCOUNTER 2024-07-08 16:45 | Outpatient (CLI) | payer MEDICARE, OTHER, SELFPAY ==
--- NOTE | 2024-07-08 17:00 | US_ITS ---
WS: [id number] TESTICULAR ULTRASOUND HISTORY: Testicular mass - left COMPARISON: 02/05/2024 TECHNIQUE: Real-time and color Doppler imaging utilized to perform a testicular ultrasound. Right testicle: 4.4 cm x 2.9 cm x 2.5 cm. Normal size and echogenicity. No mass or torsion. Normal color Doppler is present throughout. Systolic and diastolic velocities are both present. No significant hydrocele. Right epididymis: Normal epididymis with no increased vascularity. Left testicle: 3.7 cm x 2.8 cm x 2.0 cm. Normal size and echogenicity. No mass or torsion. Normal color Doppler is present throughout. Systolic and diastolic velocities are both present. No significant hydrocele. Left epididymis: Abnormal epididymis. Epididymis is diffusely enlarged and heterogeneous. Increased vascularity in portions of the epididymis. There is slight mass effect upon the testicle due to enlargement. US/US scrotum [id number] IMPRESSION: 1. No testicular mass or torsion. 2. Enlarged heterogeneous LEFT epididymis with increased vascularity from acut e epididymitis. New finding since the prior ultrasound of 02/05/2024.
== END 2024-07-08 16:46 | disposition home or self-care (01) ==
PROVIDERS: PCP Family Medicine; Visit Provider Family Medicine
DX: N50.89 Other specified disorders of the male genital organs (principal)
CPT/HCPCS: 76870

== ENCOUNTER → 2024-07-30 10:46 | Outpatient (BNVA) | payer MEDICARE, OTHER, SELFPAY | PROVIDERS: PCP Family Medicine; Visit Provider Family Medicine | DX: Z13.6 Encounter for screening for cardiovascular disorders (principal); R35.0 Frequency of micturition; R73.03 Prediabetes; E55.9 Vitamin D deficiency, unspecified; Z51.81 Encounter for therapeutic drug level monitoring | CPT/HCPCS: 80053; 80061; 82306; 83036; 84153; 85025 ==

== ENCOUNTER → 2024-08-21 09:37 | Outpatient (BNVA) | payer MEDICARE, OTHER, SELFPAY | PROVIDERS: PCP Family Medicine; Visit Provider Student in an Organized Health Care Education/Training Program | DX: M25.561 Pain in right knee (principal); M25.562 Pain in left knee; Z96.651 Presence of right artificial knee joint | CPT/HCPCS: 73560; 73565; 99213 ==

== ENCOUNTER → 2024-12-30 11:55 | Outpatient (BNVA) | payer MEDICARE, OTHER, SELFPAY | PROVIDERS: PCP Family Medicine; Visit Provider Family Medicine | DX: E55.9 Vitamin D deficiency, unspecified (principal); R73.03 Prediabetes; E53.8 Deficiency of other specified B group vitamins; R25.2 Cramp and spasm; Z51.81 Encounter for therapeutic drug level monitoring | CPT/HCPCS: 80053; 82306; 82607; 83036; 83735; 85025 ==

== ENCOUNTER 2025-01-02 06:23 | Outpatient (CLI) | payer MEDICARE, OTHER, SELFPAY ==
--- NOTE | 2025-01-02 06:30 | US_ITS ---
WS: [id number] RENAL ULTRASOUND URINARY BLADDER ULTRASOUND HISTORY: BPH with LUTS COMPARISON: 05/15/2023 TECHNIQUE: 2-D and color Doppler imaging of the kidney submitted. Right kidney: 10.6 cm x 5.9 cm x 6.5 cm. Normal echogenicity with no hydronephrosis or mass. Left kidney: 11.0 cm x 4.1 cm x 4.7 cm. Normal echogenicity with no hydronephrosis or mass. Aorta: Mild atherosclerosis. No aneurysm. Urinary Bladder: Normal distention. Prostate gland is enlarged and heterogeneous. Prostate measures 5.9 x 5.6 x 4.3 cm. Prevoid volume: 337 mL. Post void volume: 65 mL. US/US renal BI w/PV bladder [id number] IMPRESSION: 1. Normal size kidneys with no obstruction or cortical thinning. 2. There is mild post void volume residual. 3. Prostate is enlarged and heterogeneous.
--- NOTE | 2025-01-02 06:30 | USCV_ITS ---
Mikhail Do Age: 59 Gender: M : 1965 Exam Date: 01/02/2025 06:54 Ordering Phys: Andres Stoll MD Technologist: VONDA Exam Location: [facility] [place]ication: Lt calf pain. Reoccuring dvt/svt. HISTORY: Lower extremity pain. PROCEDURES: Venous duplex imaging was performed in only the left lower extremity. The following venous structures were evaluated: common femoral vein, profunda vein, proximal portion of the greater saphenous vein, superficial femoral vein, and the popliteal vein. In addition, the posterior tibial and peroneal trunk were evaluated. Serial compression, augmentation maneuvers, and spectral Doppler flow evaluation were performed. FINDINGS: Normal 2-D Doppler and augmentation and compressibility throughout the left lower extremity venous structures. Additional imaging through the proximal calf veins also reveals no thrombus. Limited evaluation of the greater saphenous vein is patent with no thrombus. CONCLUSIONS No DVT left lower extremity. Dr. Magaly Morrissey DO (Electronically Signed) Final Date: 02 January 2025 08:10 S
== END 2025-01-02 06:24 | disposition home or self-care (01) ==
LOC: RAD 06:24
PROVIDERS: PCP Family Medicine; Visit Provider Family Medicine
DX: M79.662 Pain in left lower leg (principal); N40.0 Benign prostatic hyperplasia without lower urinary tract symptoms
CPT/HCPCS: 76770; 76857; 93971